=== PATIENT | female | born 1965 | race Caucasian/White ===

== ENCOUNTER → 2016-10-02 | Outpatient (REF) | payer OTHER ==
[~2016-10-02] MED LIST: ACET65TA OR; BISOPROLOL PO; CALCIUM/VITAMIN D PO; HYDR25TA6 PO; LEVA500T OR; MULTIVIT PO; NAPROXEN SODIUM PO; PERC5TAB8 OR; POTA20TA PO
[2016-10-02 13:33] LABS: ALBUMIN 3.8 GM/DL (3.2-5.2); ALBUMIN/GLOBULIN RATIO 1.36 (1.00-1.93); ALKALINE PHOSPHATASE 88 U/L (45-117); ALT/SGPT 25 U/L (12-78); ANION GAP 7 MEQ/L (8-16); AST/SGOT 14 U/L (15-37); BILIRUBIN,TOTAL 0.6 MG/DL (0.2-1.0); BLOOD UREA NITROGEN 18 MG/DL (7-18); CALCIUM LEVEL 8.7 MG/DL (8.5-10.1); CARBON DIOXIDE LEVEL 27 MEQ/L (21-32); CHLORIDE LEVEL 106 MEQ/L (98-107); CHOLESTEROL LEVEL 186 MG/DL (<200); CREATININE FOR GFR 0.71 MG/DL (0.55-1.02); GLOMERULAR FILTRATION RATE > 60.0 (>51); GLUCOSE, FASTING 94 MG/DL (70-105); POTASSIUM SERUM 3.5 MEQ/L (3.5-5.1); SODIUM LEVEL 140 MEQ/L (136-145); TOTAL PROTEIN 6.6 GM/DL (6.4-8.2); TRIGLYCERIDES LEVEL 67 MG/DL (<150)
== END ==
LOC: M SFHCCLAY 09:01
PROVIDERS: ATTEND Family Medicine
DX: I10 Essential (primary) hypertension (principal); E78.2 Mixed hyperlipidemia

== ENCOUNTER → 2017-03-21 | Outpatient (REF) | payer OTHER ==
[2017-03-21 12:15] LABS: ALBUMIN/GLOBULIN RATIO 1.33 (1.00-1.93); ALKALINE PHOSPHATASE 79 U/L (45-117); ALT/SGPT 20 U/L (12-78); ANION GAP 10 MEQ/L (8-16); AST/SGOT 12 U/L (7-37); BILIRUBIN,TOTAL 0.5 MG/DL (0.2-1.0); BLOOD UREA NITROGEN 19 MG/DL (7-18); CALCIUM LEVEL 9.1 MG/DL (8.5-10.1); CARBON DIOXIDE LEVEL 27 MEQ/L (21-32); CHLORIDE LEVEL 106 MEQ/L (98-107); CHOLESTEROL LEVEL 198 MG/DL (<200); GLOMERULAR FILTRATION RATE > 60.0 (>51); GLUCOSE, FASTING 92 MG/DL (70-105); POTASSIUM SERUM 3.6 MEQ/L (3.5-5.1); SODIUM LEVEL 143 MEQ/L (136-145); TRIGLYCERIDES LEVEL 57 MG/DL (<150)
== END ==
LOC: M SFHCCLAY 07:28
PROVIDERS: ATTEND Family Medicine
DX: I10 Essential (primary) hypertension (principal); E78.2 Mixed hyperlipidemia

== ENCOUNTER → 2017-06-23 | Outpatient (REF) | payer OTHER ==
[2017-06-23 11:19] LABS: BASO # 0.1 10^3/uL (0.0-0.2); BASO % 1.2 % (0.0-1.0); EOS # 0.3 10^3/uL (0.0-0.50); EOS % 4.3 % (0.0-3.0); HEMATOCRIT 41.5 % (36.0-47.0); HEMOGLOBIN 13.7 g/dl (12.0-16.0); IMMATURE GRANULOCYTE % 0.2 % (0-3.0); LYMPH # 2.1 10^3/uL (1.5-4.5); LYMPH % 31.3 % (24.0-44.0); MEAN CORPUSCULAR HEMOGLOBIN 29.7 pg (27.0-33.0); MEAN CORPUSCULAR VOLUME 89.8 fl (80.0-96.0); MONO # 0.6 10^3/uL (0.0-0.8); MONO % 9.4 % (0.0-5.0); NEUTROPHILS # 3.5 10^3/uL (1.8-7.7); NEUTROPHILS % 53.6 % (36.0-66.0); PLATELET COUNT, AUTOMATED 292 10^3/uL (150-450); RED BLOOD COUNT 4.62 10^6/uL (4.00-5.40); RED CELL DISTRIBUTION WIDTH 12.8 % (11.5-14.5); WHITE BLOOD COUNT 6.6 10^3/uL (4.0-10.0)
[2017-06-23 11:33] LABS: ANION GAP 8 MEQ/L (8-16); BLOOD UREA NITROGEN 28 MG/DL (7-18); CARBON DIOXIDE LEVEL 27 MEQ/L (21-32); CHLORIDE LEVEL 106 MEQ/L (98-107); CREATININE FOR GFR 0.78 MG/DL (0.55-1.30); GLOMERULAR FILTRATION RATE > 60.0 (>51); GLUCOSE, FASTING 96 MG/DL (70-100); POTASSIUM SERUM 3.8 MEQ/L (3.5-5.1); SODIUM LEVEL 141 MEQ/L (136-145)
== END ==
LOC: M SFHCCLAY 07:03
DX: Z01.818 Encounter for other preprocedural examination (principal)

== ENCOUNTER → 2017-09-09 | Outpatient (CLI) | payer OTHER | LOC: M ONCR 08:51 | DX: D05.11 Intraductal carcinoma in situ of right breast (principal) | CPT/HCPCS: G0463 ==

== ENCOUNTER → 2017-09-11 | Outpatient (RCR) | payer OTHER | LOC: M ONCR 10:05 | DX: D05.11 Intraductal carcinoma in situ of right breast (principal) | CPT/HCPCS: 77334 ==

== ENCOUNTER 2017-09-12 10:02 | Outpatient (RCR) | payer OTHER | END 2017-10-11 | LOC: M ONCR 10:02 | DX: D05.11 Intraductal carcinoma in situ of right breast (principal) | CPT/HCPCS: 77300 ==

== ENCOUNTER → 2017-10-17 | Outpatient (REF) | payer OTHER ==
[2017-10-17 12:55] LABS: ALBUMIN 3.7 GM/DL (3.2-5.2); ALBUMIN/GLOBULIN RATIO 1.19 (1.00-1.93); ALKALINE PHOSPHATASE 84 U/L (45-117); ALT/SGPT 22 U/L (12-78); ANION GAP 8 MEQ/L (8-16); AST/SGOT 16 U/L (7-37); BILIRUBIN,TOTAL 0.5 MG/DL (0.2-1.0); BLOOD UREA NITROGEN 17 MG/DL (7-18); CALCIUM LEVEL 8.9 MG/DL (8.5-10.1); CARBON DIOXIDE LEVEL 27 MEQ/L (21-32); CHLORIDE LEVEL 108 MEQ/L (98-107); CHOLESTEROL LEVEL 213 MG/DL (<200); CREATININE FOR GFR 0.75 MG/DL (0.55-1.30); GLOMERULAR FILTRATION RATE > 60.0 (>51); GLUCOSE, FASTING 86 MG/DL (70-100); HDL CHOLESTEROL 71 MG/DL (>40); LDL CHOLESTEROL 123.2 MG/DL (<100); NON-HDL-C 142 MG/DL; POTASSIUM SERUM 3.9 MEQ/L (3.5-5.1); SODIUM LEVEL 143 MEQ/L (136-145); TOTAL PROTEIN 6.8 GM/DL (6.4-8.2); TRIGLYCERIDES LEVEL 94 MG/DL (<150)
== END ==
LOC: M SFHCCLAY 08:18
DX: I10 Essential (primary) hypertension (principal); E78.2 Mixed hyperlipidemia

== ENCOUNTER → 2017-10-29 | Outpatient (CLI) | payer OTHER | LOC: M ONCR 13:23 | DX: D05.11 Intraductal carcinoma in situ of right breast (principal) ==

== ENCOUNTER → 2017-12-30 | Outpatient (CLI) | payer OTHER | LOC: M WHC 15:45 | DX: D05.11 Intraductal carcinoma in situ of right breast (principal) | CPT/HCPCS: 77080 ==

== ENCOUNTER → 2018-02-16 | Outpatient (REF) | payer OTHER ==
[2018-02-16 13:58] LABS: CHOLESTEROL LEVEL 218 MG/DL (<200); CHOLESTEROL RISK RATIO 3.353 (<5); HDL CHOLESTEROL 65 MG/DL (>40); LDL CHOLESTEROL 128 MG/DL (<100); NON-HDL-C 153 MG/DL; TRIGLYCERIDES LEVEL 126 MG/DL (<150)
== END ==
LOC: M SFHCCLAY 07:18
DX: E78.2 Mixed hyperlipidemia (principal)

== ENCOUNTER → 2018-04-29 | Outpatient (CLI) | payer OTHER ==
--- NOTE | 2018-04-30 00:53 | REP ---
Clinical: Bursitis. Technique: Internal rotation, external rotation, and Y view of the right shoulder. Findings: Cortical irregularity and subtle spurring at the acromioclavicular joint is appreciated. The glenohumeral joint appears intact. The subacromial space is normal. No periarticular calcifications or loose bodies identified. Surrounding soft tissues are normal. Impression: Mild degenerative changes at the acromioclavicular joint.
--- NOTE | 2018-04-30 00:57 | REP ---
Clinical: Acute chest pain . Comparison: None . Technique: PA and lateral. Findings: The mediastinum and cardiac silhouette are normal. The lung albright are clear and without acute consolidation, effusion, or pneumothorax. The skeletal structures are intact and normal. Impression: 1. No acute cardiopulmonary process.
== END ==
LOC: M CLY 14:55
PROVIDERS: ATTEND Family Medicine
DX: M25.711 Osteophyte, right shoulder (principal); M75.51 Bursitis of right shoulder; R07.9 Chest pain, unspecified

== ENCOUNTER → 2018-05-14 | Outpatient (REF) | payer OTHER ==
[2018-05-15 12:34] LABS: ALBUMIN 4.2 GM/DL (3.2-5.2); ALT/SGPT 24 U/L (12-78); BILIRUBIN,TOTAL 0.3 MG/DL (0.2-1.0); BLOOD UREA NITROGEN 14 MG/DL (7-18); C REACTIVE PROTEIN QUANTITATIV < 0.30 MG/DL (0.00-0.30); CALCIUM LEVEL 9.4 MG/DL (8.5-10.1); CARBON DIOXIDE LEVEL 28 MEQ/L (21-32); CHLORIDE LEVEL 105 MEQ/L (98-107); CREATININE FOR GFR 0.74 MG/DL (0.55-1.30); GLOMERULAR FILTRATION RATE > 60.0 (>51); GLUCOSE, FASTING 85 MG/DL (70-100); POTASSIUM SERUM 3.7 MEQ/L (3.5-5.1); SODIUM LEVEL 141 MEQ/L (136-145); TOTAL PROTEIN 6.8 GM/DL (6.4-8.2)
[2018-05-19 13:04] LABS: ALBUMIN 4.42 GM/DL (3.29-5.55); ALPHA-1-GLOBULIN % 4.1 % (2.9-4.9); ALPHA-1-GLOBULINS 0.28 GM/DL (0.17-0.41); ALPHA-2-GLOBULINS % 10.3 % (7.1-11.8); BETA-1-GLOBULINS 0.39 GM/DL (0.28-0.60); BETA-1-GLOBULINS % 5.8 % (4.7-7.2); BETA-2-GLOBULINS 0.27 GM/DL (0.19-0.55); BETA-2-GLOBULINS % 3.9 % (3.2-6.5); GAMMA GLOBULIN % 10.9 % (11.1-18.8); GAMMA GLOBULINS 0.74 GM/DL (0.65-1.58)
== END ==
LOC: M SFHCCLAY 14:39
PROVIDERS: ATTEND Family Medicine
DX: M25.50 Pain in unspecified joint (principal)

== ENCOUNTER → 2018-06-04 | Outpatient (REF) | payer OTHER ==
[2018-06-08 00:06] LABS: ANA (HEP2) Negative (.); CYCLIC CITRULLINATED PEPTIDE 13 units (0-19); Lyme Disease IgG/IgM Antibodie <0.91 ISR (0.00-0.90); Lyme Disease IgM Ab Quantitati <0.80 index (0.00-0.79)
== END ==
LOC: M SFHCCLAY 17:42
PROVIDERS: ATTEND Family Medicine
DX: M25.50 Pain in unspecified joint (principal)

== ENCOUNTER → 2018-06-24 | Outpatient (CLI) | payer OTHER ==
--- NOTE | 2018-06-29 10:29 | RADONC ---
RADIATION ONCOLOGY FOLLOWUP NOTE DATE OF SERVICE: 06/24/2018 CHART NUMBER: [id number]. DIAGNOSIS: Right breast cancer. STAGE: 0, [id number]. ECOG PERFORMANCE STATUS: Zero. FOLLOWUP NOTE: Ms. 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 The patient presents today reporting that she is doing quite well with no complaints at this time related to her radiation therapy or disease. She has no breast or bone pain. REVIEW OF SYSTEMS: The patient's review of systems is noncontributory. She denies nausea, vomiting, fevers, chills, night sweats, diplopia, headaches, anxiety or depression, anorexia, weight loss, visual disturbances, chest pain, urinary or bowel difficulties, bone pain, or neurological problems. PHYSICAL EXAMINATION: The patient is a well-developed, well-nourished female in no acute distress. HEENT examination is normocephalic, atraumatic. Extraocular movements are intact. There is no palpable cervical, supraclavicular, infraclavicular, axillary, or inguinal lymphadenopathy present. Lungs are clear to auscultation and percussion. Heart has a regular rate and rhythm. Abdomen is benign with no hepatosplenomegaly, masses, or tenderness. Breast examination reveals no masses or discharge bilaterally. Skeletal examination reveals no tenderness to pressure or percussion of the bony skeleton. Extremities reveal no clubbing, cyanosis, or edema. Neurologic examination is grossly intact, as is the remainder of the physical examination. ASSESSMENT The patient is clinically VU at this time. She is being followed and managed closely by her other physicians, Dr. Stephanie Pandya and Dr. Ara Alex. In light of this, I am discharging her from my followup except on a p.r.n. basis. cc: MD Ara Garcia MD Jack Rush, MD
== END ==
LOC: M ONCR 12:52
PROVIDERS: ATTEND Radiology Radiation Oncology
DX: Z85.3 Personal history of malignant neoplasm of breast (principal)

== ENCOUNTER → 2018-06-25 | Outpatient (CLI) | payer OTHER ==
--- NOTE | 2018-06-25 18:27 | REP ---
Clinical: History of breast cancer with abnormal x-ray. Technique: Real time pepe scale ultrasound examination using curved array transducer. Findings: Liver demonstrates 7 mm cyst adjacent to the ligamentum teres as well as a 1.6 x 1.3 x 1.1 cm hyperechoic lesion in the right lobe. Spleen is normal in appearance and measures 9.4 x 3.5 x 8.7 cm. Pancreas is unremarkable. The gallbladder is normal and without gallstones, wall thickening, or pericholecystic fluid. No biliary ductal dilatation is appreciated and the common bile duct measures 4.7 mm diameter. Bilateral kidneys are normal in reniform shape without hydronephrosis. Right kidney measures 10.1 x 5.4 x 5.0 cm. Left kidney measures 10.4 x 5.3 x 6.0 cm. Abdominal aorta normal. No ascites. Impression: 1. Subcentimeter hepatic cyst adjacent to the ligamentum teres stable when compared to CT dated 2010. 2. 1.6 cm hyperechoic lesion within the right lobe of the liver likely represents hemangioma although further significant pathology cannot be excluded given the patient's history of breast cancer. Electronically Signed by Alexander Urban MD 06/25/2018 06:18 P
== END ==
LOC: M RAD 06:21
PROVIDERS: ATTEND Family Medicine
DX: R93.5 Abnormal findings on diagnostic imaging of other abdominal regions, including retroperitoneum (principal); K76.89 Other specified diseases of liver; Z85.3 Personal history of malignant neoplasm of breast

== ENCOUNTER → 2018-07-07 | Outpatient (CLI) | payer OTHER ==
[~2018-07-07] MED LIST changes: +GASTROGRAFIN SOLUTION 30ML (Q9963) As Ordered ONE; +ISOVUE-370 76% 125ML VIAL (Q9967 PER ML) As Ordered ONE
--- NOTE | 2018-07-07 16:09 | REP ---
Clinical: Follow-up liver lesion. Comparison: Ultrasound dated 06/25/2018. Technique: Axial precontrast, contrast enhanced, and delayed images of the abdomen using 100 ml Isovue 370 intravenous contrast material with coronal and sagittal re-formations. Findings: The 1.6 cm hyperechoic lesion identified in the right lobe on ultrasound has CT characteristics consistent with benign hemangioma. Few scattered subcentimeter hypodensities are also appreciated and consistent with benign hepatic cysts. No further hepatic lesions are identified. Spleen, pancreas, gallbladder, bilateral adrenal glands and kidneys are normal. Visualized enteric system is without obstruction or acute inflammatory process. Normal cecum, terminal ileum and evidence of prior appendectomy noted. No ascites. No obvious adenopathy. No abdominal mass lesion. Abdominal aorta without aneurysm or dissection. Surrounding musculoskeletal structures are intact. Lung bases are clear. Impression: 1. Nonspecific hepatic lesion identified on recent ultrasound is most compatible with benign hemangioma. A small sub centimeter hypodensities are compatible with benign hepatic cysts. 2. No further acute abdominal pathology appreciated. Electronically Signed by Alexander Urban MD 07/07/2018 04:01 P
== END ==
LOC: M RAD 13:50
PROVIDERS: ATTEND Family Medicine
DX: K76.89 Other specified diseases of liver (principal)
CPT/HCPCS: 74170; Q9963; Q9967

== ENCOUNTER → 2018-09-17 | Outpatient (CLI) | payer OTHER ==
[~2018-09-17] MED LIST changes: -GASTROGRAFIN SOLUTION 30ML (Q9963) As Ordered ONE; -ISOVUE-370 76% 125ML VIAL (Q9967 PER ML) As Ordered ONE
[2018-09-17 14:45] LABS: BLOOD UREA NITROGEN 15 MG/DL (7-18); CALCIUM LEVEL 8.8 MG/DL (8.5-10.1); CARBON DIOXIDE LEVEL 28 MEQ/L (21-32); CHLORIDE LEVEL 107 MEQ/L (98-107); CREATININE FOR GFR 0.87 MG/DL (0.55-1.30); GLOMERULAR FILTRATION RATE > 60.0 (>51); GLUCOSE, FASTING 131 MG/DL (70-100); POTASSIUM SERUM 3.3 MEQ/L (3.5-5.1); SODIUM LEVEL 143 MEQ/L (136-145)
== END ==
LOC: M LAB 13:19
PROVIDERS: ATTEND Registered Nurse
DX: D05.11 Intraductal carcinoma in situ of right breast (principal)

== ENCOUNTER → 2018-10-27 | Outpatient (REF) | payer OTHER ==
[2018-10-29 00:08] LABS: ANA (HEP2) Negative (.); CYCLIC CITRULLINATED PEPTIDE 10 units (0-19); Lyme Disease IgG/IgM Antibodie <0.91 ISR (0.00-0.90); Lyme Disease IgM Ab Quantitati <0.80 index (0.00-0.79)
== END ==
LOC: M LABDRAWC 11:38
PROVIDERS: ATTEND Family Medicine
DX: M25.50 Pain in unspecified joint (principal)

== ENCOUNTER → 2018-10-29 | Outpatient (REF) | payer OTHER ==
[2018-10-29 16:58] LABS: BLOOD UREA NITROGEN 18 MG/DL (7-18); CALCIUM LEVEL 9.3 MG/DL (8.5-10.1); CARBON DIOXIDE LEVEL 29 MEQ/L (21-32); CHLORIDE LEVEL 110 MEQ/L (98-107); GLOMERULAR FILTRATION RATE > 60.0 (>51); GLUCOSE, FASTING 88 MG/DL (70-100); SODIUM LEVEL 143 MEQ/L (136-145)
== END ==
LOC: M SFHCCLAY 10:43
PROVIDERS: ATTEND Family Medicine
DX: Z01.818 Encounter for other preprocedural examination (principal); I10 Essential (primary) hypertension

== ENCOUNTER → 2019-01-15 | Outpatient (REF) | payer OTHER ==
[2019-01-15 13:14] LABS: BLOOD UREA NITROGEN 20 MG/DL (7-18); CALCIUM LEVEL 9.2 MG/DL (8.5-10.1); CARBON DIOXIDE LEVEL 30 MEQ/L (21-32); CHLORIDE LEVEL 105 MEQ/L (98-107); CREATININE FOR GFR 0.74 MG/DL (0.55-1.30); GLOMERULAR FILTRATION RATE > 60.0 (>51); GLUCOSE, FASTING 83 MG/DL (70-100); MAGNESIUM LEVEL 2.1 MG/DL (1.8-2.4); POTASSIUM SERUM 4.1 MEQ/L (3.5-5.1); SODIUM LEVEL 140 MEQ/L (136-145)
== END ==
LOC: M SFHCCLAY 09:28
PROVIDERS: ATTEND Family Medicine
DX: I10 Essential (primary) hypertension (principal); G25.0 Essential tremor

== ENCOUNTER → 2019-03-19 | Outpatient (CLI) | payer OTHER ==
[2019-03-19 14:34] LABS: BLOOD UREA NITROGEN 18 MG/DL (7-18); CREATININE FOR GFR 0.83 MG/DL (0.55-1.30); GLOMERULAR FILTRATION RATE > 60.0 (>51)
== END ==
LOC: M LAB 12:29
PROVIDERS: ATTEND Psychiatry & Neurology Neurology
DX: I10 Essential (primary) hypertension (principal)

== ENCOUNTER → 2019-05-06 | Outpatient (REF) | payer OTHER ==
[~2019-05-06] MED LIST changes: +BISO5TAB14 PO; +CALC500C16 PO; +K-TA10TA2 PO; +LISI20TA19 PO
[2019-05-06 12:32] LABS: BLOOD UREA NITROGEN 16 MG/DL (7-18); CALCIUM LEVEL 9.5 MG/DL (8.5-10.1); CARBON DIOXIDE LEVEL 28 MEQ/L (21-32); CHLORIDE LEVEL 108 MEQ/L (98-107); CREATININE FOR GFR 0.88 MG/DL (0.55-1.30); GLOMERULAR FILTRATION RATE > 60.0 (>51); GLUCOSE, FASTING 94 MG/DL (70-100); POTASSIUM SERUM 4.1 MEQ/L (3.5-5.1); SODIUM LEVEL 143 MEQ/L (136-145)
[2019-05-06 12:40] LABS: HEMATOCRIT 46.2 % (36.0-47.0); HEMOGLOBIN 14.5 g/dl (12.0-15.5); MEAN CORPUSCULAR HEMOGLOBIN 29.2 pg (27.0-33.0); MEAN CORPUSCULAR HGB CONC 31.4 g/dl (32.0-36.5); PLATELET COUNT, AUTOMATED 283 10^3/uL (150-450); RED BLOOD COUNT 4.97 10^6/uL (4.00-5.40); WHITE BLOOD COUNT 5.2 10^3/uL (4.0-10.0)
== END ==
LOC: M SFHCCLAY 07:19
PROVIDERS: ATTEND Family Medicine
DX: Z01.818 Encounter for other preprocedural examination (principal); I10 Essential (primary) hypertension; M48.02 Spinal stenosis, cervical region

== ENCOUNTER 2019-05-11 05:36 | Inpatient (IN) | payer OTHER ==
[~2019-05-11] VITALS: Ht 160 cm; Wt 88.5 kg
[2019-05-11] VITALS (8 sets, daily range): BP systolic 110–126; BP diastolic 51–73
[2019-05-11] MEDS ORDERED: GABAPENTIN 300 MG CAP PO ONE (06:00)
[2019-05-11] MEDS ORDERED: ceFAZolin SOD 2 GM in IV 1 EA IV ONE ×2 (06:00→14:00)
[2019-05-11] MEDS ORDERED: LR 1,000 ML IV SCH ×3 (06:00→12:45)
[2019-05-11] MEDS ORDERED: CelecoXIB (CeleBREX) 100 MG CAP PO ONE (06:00)
[2019-05-11] MEDS ORDERED: PERCOCET 5MG/325MG TAB PO ONE (06:00)
[2019-05-11] MEDS ORDERED: BUPIVACAINE/EPIN 0.25% 30 ML VIAL As Ordered ONE (06:20)
[2019-05-11] MEDS ORDERED: LIDOCAINE W/EPINEPHRINE 1% 20ML VIAL As Ordered ONE (06:20)
[2019-05-11] MEDS ORDERED: THROMBIN SOLN 20,000 UNITS KIT As Ordered ONE (06:21)
[2019-05-11] MEDS ORDERED: BACITRACIN PWD 50,000 UNITS VIAL As Ordered ONE (06:21)
[2019-05-11] MEDS ORDERED: MIDAZOLAM INJ 2 MG/2 ML VIAL (J2250) As Ordered ONE (06:45)
[2019-05-11] MEDS ORDERED: fentaNYL 250 MCG/5 ML INJECTION (J3010) As Ordered ONE (06:45)
[2019-05-11] MEDS ORDERED: dexameTHASONE 4 MG/ML 1ML VIAL (J1100) As Ordered ONE (06:46)
[2019-05-11] MEDS ORDERED: ROCURONIUM BROMIDE 50 MG/5 ML VIAL As Ordered ONE (06:46)
[2019-05-11] MEDS ORDERED: ACETAMINOPHEN 1000MG 100ML IV BTL (OFIRMEV) (J0131 PER 10MG) As Ordered ONE (06:46)
[2019-05-11] MEDS ORDERED: SUGAMMADEX SODIUM 500 MG/5 ML VIAL (BRIDION) As Ordered ONE (06:46)
[2019-05-11] MEDS ORDERED: propofoL 200 MG/20 ML VIAL As Ordered ONE (06:46)
[2019-05-11] MEDS ORDERED: ONDANSETRON 4MG/2ML VIAL (J2405) As Ordered ONE (06:46)
[2019-05-11] MEDS ORDERED: LIDOCAINE 2% INJ 100 MG/5 ML SDV (FOR ANES.) As Ordered ONE (06:47)
[2019-05-11] MEDS ORDERED: SCOPOLAMINE 1MG TRANSDERMAL PATCH TOP ONE (07:30)
--- NOTE | 2019-05-11 07:30 | HPE ---
DATE OF ADMISSION: 05/11/2019 HISTORY OF PRESENT ILLNESS: The patient is having continuing neck discomfort with the right arm extremity burning discomfort terminating at the ulnar side of her hand. She had MRI imaging consistent with stenosis. MRI was reflective of degenerative change C3-C7, but most significantly at C5-C6 spinal stenosis, AP diameter of the cord measuring 7.3 mm, and at C6-7 the narrowest AP diameter is about 5.2 mm. No cord signal change was appreciated. Plain films were also reflective of diffuse degenerative changes C3-C7, including anterior osteophyte formation which may be most developed at C5-6 and C6-7. ALLERGIES: PENICILLIN has caused her rash in the past. MEDICATIONS: List includes lisinopril/hydrochlorothiazide 20/12.5 mg, potassium chloride ER 10 mEq, bisoprolol fumarate 5 mg, etodolac 400 mg, calcium 500 mg. MEDICAL PROBLEM LIST: Includes cervicalgia, cervical stenosis with right upper extremity radiculopathy, pure hypercholesteremia, hypertension. PAST SURGICAL HISTORY: Appendectomy, lumpectomy of breast, tonsillectomy, right rotator cuff repair. FAMILY HISTORY: Arthritis, diabetes, hypercholesteremia, hypertension and also thyroid disease. PERSONAL HISTORY: She denies smoking. She occasionally intakes alcohol. Denies illicit drugs. REVIEW OF SYSTEMS: She denies chest pain, shortness of breath, dyspnea on exertion, fever, chills, malaise, upper respiratory or urinary tract symptoms. She reports clearance per primary care physician, Dr. Young, although I am still awaiting clearance documentation. LABS: Labs were completed via [facility] on 05/06/2019. Findings show chloride 108, anion gap 7, MCHC 31.4, otherwise unremarkable. PHYSICAL EXAMINATION: Blood pressure (BP) 139/80. Pulse 84. Temperature 98.5. Height 5 feet 3 and 1/2 inches. Weight 195.8 pounds. Body mass index (BMI) 33.5. Respirations 16. This is a pleasant, well-developed, well-nourished, obese female in no acute distress, alert and oriented times three. Mood and affect are appropriate. She is ambulating without overt antalgia, assistance or favoring. Normocephalic. Neck: Supple. Negative jugular venous distention (JVD) or bruits. Chest rises symmetrically. Regular rate and rhythm. Lungs: Clear to auscultation. Bowel sounds times four, soft, nontender. IMPRESSION: Continuing symptomatic cervical stenosis producing right arm radiculopathy. The patient has consented for anterior cervical decompression fusion per Dr. Tres Espino. Medical optimization per Dr. Otoniel Young. We are awaiting his clearance note, although the patient states she has been cleared. Sequential compression device (SCD) and thromboembolic deterrent stockings (TEDS) in operating room (OR). [place] collar to be brought to surgery. On-call to OR, 2 grams IV Kefzol in OR. MTDD
[2019-05-11] MEDS ORDERED: fentaNYL 100 MCG/2 ML INJECTION (J3010) IV PRN (12:45)
[2019-05-11] MEDS ORDERED: ACETAMINOPHEN TAB 650MG DOSE (2X325MG) PO PRN (12:45)
[2019-05-11] MEDS ORDERED: HYDROMORPHONE HCL 0.5 MG/ 0.5 ML SYRINGE (J1170 PER 1) IV PRN ×2 (12:45)
[2019-05-11] MEDS ORDERED: PERCOCET 5MG/325MG TAB PO PRN (12:45)
[2019-05-11] MEDS ORDERED: ONDANSETRON 4MG/2ML VIAL (J2405) IV PRN (12:45)
[2019-05-11] MEDS ORDERED: oxyCODONE 5MG TAB As Ordered ONE (12:58)
[2019-05-11] MEDS ORDERED: oxyCODONE 5MG TAB PO ONE (13:15)
[2019-05-11] MEDS: D5W/LR 1,000 ML IV SCH (14:04)
[2019-05-11] MEDS: ONDANSETRON 4MG/2ML VIAL (J2405) IV PRN ×2 (14:58→18:50)
[2019-05-11] MEDS: PERCOCET 5MG/325MG TAB PO PRN (18:25)
[2019-05-12 02:00] VITALS: BP 135/80
[2019-05-12] MEDS: ONDANSETRON 4MG/2ML VIAL (J2405) IV PRN ×2 (02:07→09:30)
[2019-05-12] MEDS: D5W/LR 1,000 ML IV SCH (02:08)
[2019-05-12] MEDS: PERCOCET 5MG/325MG TAB PO PRN ×2 (02:08→09:33)
--- NOTE | 2019-05-12 03:06 | REP ---
Clinical: Cervical fixation. Technique: Multiple intraoperative cross-table lateral views of the cervical spine. Findings: Final image demonstrates anterior cervical fixation spanning C5 - C7. Alignment appears relatively normal. Multilevel degenerative changes are also appreciated. Impression: Status post anterior cervical fixation. Electronically Signed by Alexander Urban MD 05/12/2019 02:57 A
[2019-05-12] MEDS ORDERED: OXYC-517 PO (05:52)
[2019-05-12 06:00] VITALS: BP 136/79
[2019-05-12] MEDS ORDERED: METAMUCIL (PSYLLIUM) PACKET PO SCH (09:00)
[2019-05-12] MEDS ORDERED: lisinopriL 20 MG TAB PO SCH (09:00)
[2019-05-12] MEDS ORDERED: bisoproloL fumarate 5 MG TAB PO SCH (09:00)
[2019-05-12] MEDS ORDERED: hydroCHLOROthiazide 12.5 MG CAPSULE PO SCH (09:00)
[2019-05-12] MEDS ORDERED: POTASSIUM CHLORIDE 10 MEQ SR TABLET PO SCH (09:00)
[2019-05-12 09:31] VITALS: BP 140/81
[2019-05-12 10:00] VITALS: BP 141/82
--- NOTE | 2019-05-12 13:44 | RO ---
DATE OF PROCEDURE: 05/11/2019 PREOPERATIVE DIAGNOSIS: Cervical spinal stenosis producing right upper extremity neurogenic claudication and radicular pain. POSTOPERATIVE DIAGNOSIS: Cervical spinal stenosis producing right upper extremity neurogenic claudication and radicular pain. PROCEDURE PERFORMED: Partial corpectomy of the C6 vertebral body for decompression of the thecal sac and removal of the posterior longitudinal ligament, 50% of the C6 corpus removed in addition to a small portions of that the C7 corpus as well as osteophytes. Additional level partial corpectomy C5, 50% at the C5 corpus removed, as well as, the uncinate processes of the C6 corpus, as well as, osteophytes and the posterior longitudinal ligament. Arthrodesis C5-6 and arthrodesis C6-7. Structural graft utilized at C5-6 and C6-7. Anterior cervical instrumentation plate instrumentation C5, C6, C7 applied. SURGEON: Dr. Tres Espino FINANCE AND ADMINISTRATION MANAGER: Pan Paulino, physician podiatrist assistant ANESTHESIA: General. ESTIMATED BLOOD LOSS: Less than 50 mL, replaced with crystalloid. COMPLICATIONS: None. COMPONENTS USED: Include a DePuy [place] 30 mm plate, 15 mm screws superiorly and inferiorly, 14 mm screws at the C6 level. VG2 structural allograft for spine surgery, size 5x7 used at C5-6 and size 5x7 used at C6-7. INDICATIONS: Severe spinal stenosis as evidenced on MRI. Multilevel degenerative changes with the worst spinal stenosis appearing at C6-7 with spinal cord deformity, but as well as some at C5-6. The patient has elected for operative intervention. CONSENT: Consent reviewed in detail including a yin discussion of pathology involved, procedure proposed, alternatives including doing nothing, and risks including, but not limited to pain, failure, infection, bleeding, blood loss, incomplete relief of symptoms, need for additional surgery, paralysis, swallowing trouble, hoarseness, and other issues. The indications for corpectomy include complete collapse of the C6-7 disk space as well as C5-6 disk space necessitating additional bony resection over what is typical. OPERATIVE COURSE: Identified in the holding area, site and side verified, brought to the operating room. General endotracheal anesthesia was administered and she was positioned in the usual fashion. Next, the shoulders were taped at the side, head halter traction 7 pounds was applied. She was draped for exposure for a right-sided anterior cervical approach. Next, incision outlined with a marking pen. I utilized 3.5 loupe magnification. Incision was infiltrated with 1% lidocaine with epinephrine. I obtained a cross-table lateral x-ray to verify our location because of the patient's relatively short montiel neck and the proximity of the clavicle to the planned incision. We verified our appropriate trajectory. We made the incision with a 10 blade knife and developed down through skin and subcuticular tissues. I did appreciate significant soft tissue fibrosis and this was thought to likely be due to exposure to radiation during breast cancer treatment. This fibrosis extended throughout the case and did significantly add to the difficulty of the case in the time required to complete the procedure. Next, platysma was elevated and divided with the bipolar cautery as well as tenotomy scissors. The omohyoid was identified. There were large epidural branches of the external jugular and I was required to ligate and divide these in the course the exposure. Sternocleidomastoid was landmark bilaterally. Next, the dissection continued medial to the carotid sheath which was protected. Again, significant fibrosis of the soft tissue made this slow going for mostly blunt dissection. We continued to the osteophyte complex at C5-6 and C6-7. I cleared the prevertebral fascia from the C5-6 osteophyte, which was quite large. I placed the bayonet spinal needle. Next, once this was accomplished, we obtained a cross-table lateral x-ray for localization. Next, once we verified our level, I then elevated the longus colli bilaterally and exposed the osteophyte complexes at C5-6 and C6-7. Leksells and Aguilera-Petersens were utilized to remove the anterior disk osteophyte complex. Next, distraction pins were placed at C6-7 and then we placed the Shadow-Line retractor. Mr. Montanez also utilized S retractors to help with the exposure. I utilized an 11 blade to open additional portions of annulus at 6-7 and I distracted across C6-7. The C6-7 interspace was appreciated to be significantly collapsed. Next, I utilized #2 and #3 Kerrisons to remove inferior corpus of C6 and additional osteophytes. I utilized curettes to remove cartilaginous endplate I utilized the oval bur to remove inferior corpus 6 so that I could continue the dissection down to the posterior longitudinal ligament. The uncinate processes were also debrided. The posterior longitudinal ligament was elevated with curved curettes and removed using #1 and #2 Kerrisons exposing the thecal sac. Irrigation was accomplished. Once I verified the thecal sac had been decompressed significantly, I then rasped using a size 4 x 6 and 5 x 7 rasp and 5 x7 sound. We selected a 5.7 graft. We utilized bur millings which were pressed into the graft and the graft was implanted at C6-7. Next, it was tamped into place. Once this was accomplished, inferior traction pin removed and oval bur was utilized to further contour osteophyte. Plug of wax was utilized to plug the hole. Next, we moved the retractor superiorly and placed a distraction pin across C5-6. Next, again osteophyte was removed using the Aguilera-Petersens. I then removed disk material using pituitaries. We then curetted and utilized #2 and #3 Kerrisons to remove inferior corpus 5 at the anterior aspect. I utilized curved curettes to remove cartilaginous endplate. I used the oval bur to remove additional inferior corpus of 5 down to the PLL. I utilized the oval bur to further flatten the uncinate processes of C6. I utilized curved curettes to elevate the posterior longitudinal ligament and removed it with #1 and #2 Kerrisons and exposed the thecal sac which was appreciated to be decompressed. Irrigation was accomplished. Rasps were utilized through a size 5 x 7 and 5 x 7 sound was utilized. I then implanted at 5 x 7 graft with bur milling pressed into the graft for bone graft. Next, it was tamped into place. Next, distraction pins were removed. The holes plugged with wax. Mr. Montanez utilized S retractors to help with exposure. I utilized the oval bur to further contour the anterior vertebral bodies to receive the plate. We selected a 30 mm plate, which was implanted from C5 through 7, 15 mm screws inferiorly at 7 and at 5 superiorly, 14 mm screws at 6. The locking device was engaged. Irrigation was accomplished. We inspected for bleeding. No active bleeding. The wound retractors were removed. All pins were removed. The platysma was closed with interrupted stitch, deep dermis with interrupted stitch and Dermabond on skin. Collar was applied. The patient extubated and moved to recovery room in good condition. For further details, please refer to the medical record.
--- NOTE | 2019-05-13 01:03 | ECGEPIP ---
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
--- NOTE | 2019-05-18 14:16 | DSES ---
DATE OF ADMISSION: 05/11/2019 DATE OF DISCHARGE: 05/12/2019 DISCHARGE DIAGNOSIS: Cervical spinal stenosis of the right upper extremity radiculopathy status post anterior cervical decompression and fusion of C5-6 and C6-7. HISTORY: This is a 53-year-old female with progressively worsening cervical spinal stenosis with right upper extremity radiculopathy. She had failed to improve with conservative treatment. She elected for surgery for her continued symptoms. PROCEDURE PERFORMED: Anterior cervical decompression and fusion of C5-6 and C6-7. HOSPITAL COURSE: The patient was admitted on the day of surgery and underwent anterior cervical discectomy and fusion (ACDF) of C5-6 and C6-7 that was without complications. Her hospital course was without complications. On the day of discharge, the patient was doing well. She will resume preoperative medications and diet, will use oral medications for pain control, and will followup in the office in 2 weeks for wound check. For further information please see the medical record.
== END 2019-05-12 10:50 | disposition home or self-care (01) | DRG 473 ==
LOC: M OR 05:36 → M MS5PR 13:40
PROVIDERS: ADMIT Orthopaedic Surgery; ATTEND Orthopaedic Surgery
PROC: 0PB30ZZ Excision of Cervical Vertebra, Open Approach (ICD-10-PCS; 2019-05-11)
PROC: 00NW0ZZ Release Cervical Spinal Cord, Open Approach (ICD-10-PCS; 2019-05-11)
PROC: 0RG20A0 Fusion of 2 or more Cervical Vertebral Joints with Interbody Fusion Device, Anterior Approach, Anterior Column, Open Approach (ICD-10-PCS; principal; 2019-05-11 07:30)
DX: M48.02 Spinal stenosis, cervical region (principal); M50.11 Cervical disc disorder with radiculopathy, high cervical region; M50.121 Cervical disc disorder at C4-C5 level with radiculopathy; M50.122 Cervical disc disorder at C5-C6 level with radiculopathy; M50.123 Cervical disc disorder at C6-C7 level with radiculopathy; M25.78 Osteophyte, vertebrae; Z88.0 Allergy status to penicillin; Z79.899 Other long term (current) drug therapy; E78.00 Pure hypercholesterolemia, unspecified; I10 Essential (primary) hypertension; Z90.49 Acquired absence of other specified parts of digestive tract

== ENCOUNTER → 2019-10-18 | Outpatient (REF) | payer OTHER ==
[~2019-10-18] MED LIST changes: -LISI20TA19 PO; +LISI20TA35 PO; +OXYC-517 PO
[2019-10-18 13:30] LABS: ALBUMIN 3.6 GM/DL (3.2-5.2); ALT/SGPT 58 U/L (12-78); BILIRUBIN,TOTAL 0.7 MG/DL (0.2-1.0); BLOOD UREA NITROGEN 13 MG/DL (7-18); CALCIUM LEVEL 8.9 MG/DL (8.5-10.1); CARBON DIOXIDE LEVEL 27 MEQ/L (21-32); CHLORIDE LEVEL 109 MEQ/L (98-107); CHOLESTEROL LEVEL 234 MG/DL (<200); CHOLESTEROL RISK RATIO 4.254 (<5); CREATININE FOR GFR 0.77 MG/DL (0.55-1.30); GLOMERULAR FILTRATION RATE > 60.0 (>51); GLUCOSE, FASTING 87 MG/DL (70-100); HDL CHOLESTEROL 55 MG/DL (>40); LDL CHOLESTEROL 155 MG/DL (<100); NON-HDL-C 179 MG/DL; POTASSIUM SERUM 3.9 MEQ/L (3.5-5.1); SODIUM LEVEL 142 MEQ/L (136-145); TOTAL PROTEIN 6.4 GM/DL (6.4-8.2); TRIGLYCERIDES LEVEL 121 MG/DL (<150)
== END ==
LOC: M SFHCCLAY 08:34
PROVIDERS: ATTEND Family Medicine
DX: E78.2 Mixed hyperlipidemia (principal); I10 Essential (primary) hypertension

== ENCOUNTER → 2020-05-25 | Outpatient (REF) | payer OTHER ==
[~2020-05-25] MED LIST changes: +TRIA37.5 PO; +VITMTA PO
[2020-05-25 16:25] LABS: BLOOD UREA NITROGEN 17 MG/DL (7-18); CALCIUM LEVEL 9.3 MG/DL (8.5-10.1); CARBON DIOXIDE LEVEL 30 MEQ/L (21-32); CHLORIDE LEVEL 105 MEQ/L (98-107); CREATININE FOR GFR 0.83 MG/DL (0.55-1.30); GLOMERULAR FILTRATION RATE > 60.0 (>51); GLUCOSE, FASTING 86 MG/DL (70-100); POTASSIUM SERUM 4.6 MEQ/L (3.5-5.1); SODIUM LEVEL 141 MEQ/L (136-145)
== END ==
LOC: M SFHCCLAY 09:36
PROVIDERS: ATTEND Family Medicine
DX: I10 Essential (primary) hypertension (principal)

== ENCOUNTER → 2020-05-27 | Outpatient (CLI) | payer OTHER | LOC: M LABSMTC 09:22 | PROVIDERS: ATTEND Anesthesiology | DX: Z01.812 Encounter for preprocedural laboratory examination (principal); Z20.822 Contact with and (suspected) exposure to COVID-19 ==

== ENCOUNTER 2020-06-01 10:09 | Day surgery (SDC) | payer OTHER ==
[~2020-06-01] VITALS: Ht 160 cm; Wt 93.0 kg
[~2020-06-01 10:09] MED LIST changes: +KETOROLAC 60MG 2ML VIAL As Ordered ONE; +LIDOCAINE 1% MDV 20ML VIAL SQ PRN; +LIDOCAINE 2% 100MG/5ML SDV (FOR ANES.) As Ordered ONE; +LR 1,000 ML IV ONE; +MIDAZOLAM INJ 2MG/2ML VIAL (J2250 PER 1MG) As Ordered ONE; +ONDANSETRON 4MG/2ML VIAL As Ordered ONE; +fentaNYL 100 MCG/2 ML INJECTION (J3010) As Ordered ONE; +propofoL 200 MG/20 ML VIAL As Ordered ONE
--- OUTSIDE RECORDS SUMMARY | 2020-06-01 10:15 | CCD | Continuity of Care Document ---
Author Author Radha JETER MD Organization Unknown Address [address] [place] [id number] Phone [phone] Care Team Providers Care Clinical Provider Trainer Name Role Phone Otoniel Young MD [facility] [phone] Problems Active Problems Provider Date Essential hypertension Marcia Jeter MD Onset: 03/26/2012 Obesity Kathleen Zhou WHNP Onset: 11/03/2013 Urinary incontinence Kathleen Zhou WHNP Onset: 11/03/2013 Social History Type Date Description Comments Sex Unknown Tobacco Use Start: Unknown Never Smoked Cigarettes ETOH Use Non-smoker, Occasional Drinker, Non-drug User Tobacco Use Start: Unknown Patient has never smoked Smoking Status Reviewed: 05/03/20 Patient has never smoked Exercise Type/Frequency Exercises regularly Allergies, Adverse Reactions, Alerts Active Allergies Reaction Severity Comments Date Penicillin 03/26/2012 Medications Active Medications SIG Qnty Indications Ordering Provide r Date Bisoprolol Fumarate 5mg Tablets 1/2 Tab Daily Unknown Triamterene/Hydrochlorothiazide 37.5-25mg Tablets 1 by mouth in am daily Unknown Immunizations Description No Information Available Vital Signs Date Vital Result Comment 05/03/2020 9:28am BP Systolic 128 mmHg BP Diastolic 76 mmHg Height 63.5 inches 5'3.50" Weight 204.00 lb BMI (Body Mass Index) 35.6 kg/m2 BSA (Body Surface Area) 1.96 m2 04/30/2019 10:32am BP Systolic 138 mmHg BP Diastolic 86 mmHg Height 63.5 inches 5'3.50" Weight 196.00 lb BMI (Body Mass Index) 34.2 kg/m2 BSA (Body Surface Area) 1.93 m2 Results Description No Information Available Procedures Date Code Description Status 04/29/2017 [id number] Mammogram Completed Medical Devices Description No Information Available Encounters Type Date Location Provider Dx Diagnosis Office Visit 05/03/2020 10:30a [facility] drafter patent Marcia Jeter MD Z0 1.411 Encntr for vehicle service agent exam (general) (routine) w abnormal findings 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 N39.3 Stress incontinence (female) (male) Z12.4 Encounter for screening for malignant neoplasm of cervix Z12.39 Encounter for oth screening for malignant neoplasm of breast Z91.89 Oth personal risk factors, n ot elsewhere classified Assessments Date Code Description Provider 05/03/2020 Z01.411 Encounter for gyneco logical examination (general) (routine) with abnormal findings Marcia Jeter MD 05/03/2020 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 Marcia Jeter MD 05/03/2020 N39.3 Stress incontinence (female) (ma le) Marcia Jeter MD 05/03/2020 Z12.4 Encounter for screening for eliz gnant neoplasm of cervix Marcia Jeter MD 05/03/2020 Z12.39 Encounter for other screening for malignant neoplasm of breast Marcia Jeter MD 05/03/2020 Z91.89 Other specified pers onal risk factors, not elsewhere classified Marcia Jeter MD Plan of Treatment Future Appointment(s):* 06/12/2020 11:45 am - Marcia Jeter MD at [facility] drafter patent * 06/01/2020 10:30 am - Marcia Jeter MD at [facility] * 05/07/2021 10:45 am - Marcia Jeter MD at [facility] drafter patent 05/03/2020 - Marcia Jeter MD* Z01.411 Encounter for gynecological examination (general) (routine) with abnormal findings * 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
--- OUTSIDE RECORDS SUMMARY | 2020-06-01 10:15 | CCD ---
Author Author [facility] Organization [facility] Address Unknown Phone Unavailable Care Team Providers Care Envelope Stuffer Name Role Phone Otoniel Young Unavailable PROBLEMS Type Condition ICD9-CM Code [id number] Code Onset Dates Condition S tatus SNOMED Code Notes Problem Mixed hyperlipidemia E78.2 Active 337451617 Problem Essential hypertension I10 Active 20794466 Problem Non morbid obesity due to excess calories E66.09 Active 529191418 Problem Essential tremor G25.0 Active 457702005 Problem Spinal stenosis, cervical region M48.02 Active 47897904 Problem Encounter for general adult medical examination without abnormal findings Z00.00 Active 607209221 Problem Internal impingement of right shoulder M75.41 Active 0112405678641340 Problem 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 6993041228495769 Problem Liver lesion K76.9 Active 767120048 ALLERGIES Allergen (clinical drug ingredient) Drug/Non Drug Allergy do cumented on EMR Reaction Allergy Type Onset Date Status Penicillin (For Allergies Use Only) Rash Drug Allerg y Active ENCOUNTERS from 1965 to 2020-04-25 Encounter Location Date Provider Diagnosis [facility] [address] [place] [address] Apr, Otoniel Young Encounter for immunization Z23 ; Mixed hyperlipidemia E78.2 ; Essential hypertension I10 and Contact dermatitis, unspecified contact dermatitis type, unspecified trigger L25.9 IMMUNIZATIONS Vaccine Route Administration Date Status Influenza (18 yrs & older) Flublok IM Intramuscular Apr 20, 2020 Administered Influenza (18 yrs & older) Flublok IM Intramuscular Jan 13, 2019 Administered Influenza (6mo & up) Fluzone IM Intramuscular May 12, 2018 Ad ministered Influenza (6mo & up) Fluzone IM Intramuscular Mar 26, 2016 Ad ministered Influenza (6mo & up) Fluzone IM Intramuscular Mar 08, 2015 Ad ministered SOCIAL HISTORY Tobacco Use: Social History Observation Description Date Details (start date - stop date) Never Smoker Sex Assigned At : Social History Observation Description Sex Assigned At Unknown Education: Question Answer Notes Level of Education: College Audit Question Answer Notes Total Score: 1 Interpretation: Alcohol Education Language: Question Answer Notes Languages spoken: Hungarian Catholic: Question Answer Notes Catholic 31 None Sexual Hx: Question Answer Notes Had sex in the last 12 months (vaginal, oral, or anal)? Yes Have you ever had an STD? No with Men only Use protection? No Drug and Alcohol Question Answer Notes Total Score: 0 Interpretation: No problems reported BMI Care Goal Follow-Up Question Answer Notes Above Normal BMI Follow-Up Giving encouragement to exercise Tobacco Use: Question Answer Notes Are you a: never smoker never smoker/updated 04/20/2020 REASON FOR REFERRAL No Information VITAL SIGNS Weight 204 lbs Apr, Height 5'3 1/2" in Apr, BMI 35.57 kg/m2 Apr, Heart Rate 66 /min Apr, Respiratory Rate 18 /min Apr, Temperature 98 degrees Fahrenheit Apr, Oximetry 98RA Apr, Blood pressure systolic 131 mm Hg Apr, Blood pressure diastolic 77 mm Hg Apr, MEDICATIONS Medication SIG (Take, Route, Frequency, Duration) Notes Start Da te End Date Status Bisoprolol Fumarate 5 MG TAKE 1/2 TABLET BY MOUTH ONCE A DAY Orally Once a day Active Clobetasol Propionate 0.05 % 1 application Externally Twice a da y Oct, Active Triamterene-HCTZ 37.5-25 MG 1 tablet in the morning Orally Once a day Active Meclizine HCl 25 MG 1 tablet as needed Orally Once a day 0 Oct, Active PROCEDURES from 1963 to 2020-04-25 Procedure Date Ordered Result Body Site Immunization: Flublok Quadrivalent (18 years & older) 0.5mL IM (Influenza) 2020-04-20 N/A RESULTS No Results REASON FOR VISIT 6 month follow up MEDICAL (GENERAL) HISTORY Type Description Date Medical History Kidney stones, 2005 Medical History Hyperlipidemia Medical History Hypertension Medical History Cancer-right breast DCIS Medical History Irregular menstrual cycle Medical History Symptomatic menopausal or female climact ale[place] Medical History Torn rotator cuff right shoulder Surgical History Appendectomy, post surgery infection as well 2010 Surgical History Lithotripsy X 2 Surgical History Cervical ablation 03/2012 Surgical History Colonoscopy 01/2015 Surgical History Zach breast biopsy 05/16/2017 Surgical History tonsillectomy 1970 Surgical History 3 lumpectomies-right breast 07/01,07/10, Surgical History Roatar cuff repair @ [facility] same day surgery 11/02/2018 Surgical History ACDF 05/11/2019 Hospitalization History overnight for appendectomy 2010 Hospitalization History injection after appendectomy 2010 Hospitalization History vaginal childbirth X 3 Hospitalization History Back surgery 05/11/2019 Goals Section No Information Health Concerns No Information MEDICAL EQUIPMENT No Information MENTAL STATUS No Information FUNCTIONAL STATUS No Information ASSESSMENTS Encounter Date Diagnosis Assessment Notes Treatment Notes Treatm ent Clinical Notes Apr, Encounter for immunization (ICD-10 - Z23) Patient Educated with: FLU Vaccine, Inactivated [id number] (FLU Vaccine, Inactivated [id number]), 10 year ASCVD risk using ASCVD Risk Jet Dyeing Machine Tender + calculated to be: 3.8% ; medical tx not indicated Apr, Mixed hyperlipidemia (ICD-10 - E78.2) Apr, Essential hypertension (ICD-10 - I10) Apr, Contact dermatitis, unspecif ied contact dermatitis type, unspecified trigger (ICD-10 - L25.9) PLAN OF TREATMENT Medication Medication Name Sig Start Date Stop Date Bisoprolol Fumarate 5 MG TAKE 1/2 TABLET BY MOUTH ONCE A DAY Orally Once a day Triamterene-HCTZ 37.5-25 MG 1 tablet in the morning Orally Once a day Meclizine HCl 25 MG 1 tablet as needed Orally Once a day Oct, Clobetasol Propionate 0.05 % 1 application Externally Twice a da y Oct, Treatment Notes Assessment Notes Clinical Notes Encounter for immunization Patient Educated with: FLU Vaccine, Inactivated [id number] (FLU Vaccine, Inactivated [id number]), 10 year ASCVD risk using ASCVD Risk Jet Dyeing Machine Tender + calculated to be: 3.8% ; medical tx not indicated Next Appt Details 4 Months Reason: Provider Name:Otoniel Young, 2020-08-18 10 :00:00 AM, [address], [place], [address], Insurance Providers Payer Name Payer Address Payer Phone Insured Name Patient Relati onship to Insured Coverage Start Date Coverage End Date [facility] [id number] [facility] [id number] [phone] [employer] self
--- OUTSIDE RECORDS SUMMARY | 2020-06-01 10:15 | CCD | Continuity of Care Document ---
Author Author Radha JETER MD Organization Unknown Address [address] [place] [address] Phone [phone] Care Team Providers Care Chemical Applicator Name Role Phone Otoniel Young MD [facility] [phone] Problems Active Problems Provider Date Essential hypertension [...] BSA (Body Surface Area) 1.93 m2 Results Test Acquired Date Facility Test Result H/L Range Note Thinprep W/Reflex HR HPV If Asc-US 05/03/2020 [facility] TP Reflex HPV ASCUS Normal Normal 1 TP Reflex HPV ASCUS SEE IMAGE 1 SPECIME N PART A. Cervical, Endocervical, ThinPrep Pap (Live Games Dealer) CYTOLOGY HX-------- Other Information: Ablation Previous Normal Pap: 04/30/19 FINAL DIAGNOSIS---- INTERPRETATION: Negative for Intraepithelial Lesion or Malignancy. SPECIMEN ADEQUACY:Satisfactory for evaluation. Endocervical/transformation zone component present. Procedures Date Code Description Status 04/29/2017 [id number] Mammogram Completed Medical Devices Description No Information Available Encounters Type Date Location Provider Dx Diagnosis Office Visit 05/03/2020 10:30a [facility] Marcia Jeter MD Z0 1.411 Encntr for missile tracking technician exam (general) (routine) w abnormal findings N36.41 [...] 11:45 am - Marcia Jeter MD at [facility] bench * 06/01/2020 10:30 am - Marcia Jeter MD at [facility] * 05/07/2021 10:45 am - Marcia Jeter MD at [facility] bench 05/03/2020 - Marcia Jeter MD* Z01.411 Encounter for gynecological examination (general) (routine) with abnormal findings * 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
--- OUTSIDE RECORDS SUMMARY | 2020-06-01 10:15 | CCD ---
Author Author [facility] Organization [facility] Address Unknown Phone Unavailable Care Team Providers Care Advertising Sales Consultant Name Role Phone KEYSHAWN MIGUEL Unavailable Unavailable CICO, A SOURAV OIL FIELD EQUIPMENT MECHANIC Unavailable Unavailable CICO, A SOURAV OIL FIELD EQUIPMENT MECHANIC Unavailable Unavailable CICO, A SOURAV OIL FIELD EQUIPMENT MECHANIC Unavailable Unavailable CICO, A SOURAV OIL FIELD EQUIPMENT MECHANIC Unavailable Unavailable CICO, A SOURAV OIL FIELD EQUIPMENT MECHANIC Unavailable Unavailable CICO, A SOURAV OIL FIELD EQUIPMENT MECHANIC Unavailable Unavailable CICO, A SOURAV OIL FIELD EQUIPMENT MECHANIC Unavailable Unavailable CICO, A SOURAV OIL FIELD EQUIPMENT MECHANIC Unavailable Unavailable CICO, A SOURAV OIL FIELD EQUIPMENT MECHANIC Unavailable Unavailable CICO, A SOURAV OIL FIELD EQUIPMENT MECHANIC Unavailable Unavailable CICO, A SOURAV OIL FIELD EQUIPMENT MECHANIC Unavailable Unavailable CICO, A SOURAV OIL FIELD EQUIPMENT MECHANIC Unavailable Unavailable CICO, A SOURAV OIL FIELD EQUIPMENT MECHANIC Unavailable Unavailable CICO, A SOURAV OIL FIELD EQUIPMENT MECHANIC Unavailable Unavailable CICO, A SOURAV OIL FIELD EQUIPMENT MECHANIC Unavailable Unavailable CICO, A SOURAV OIL FIELD EQUIPMENT MECHANIC Unavailable Unavailable CICO, A SOURAV OIL FIELD EQUIPMENT MECHANIC Unavailable Unavailable CICO, A SOURAV OIL FIELD EQUIPMENT MECHANIC Unavailable Unavailable CICO, A SOURAV OIL FIELD EQUIPMENT MECHANIC Unavailable Unavailable CICO, A SOURAV OIL FIELD EQUIPMENT MECHANIC Unavailable Unavailable CICO, A SOURAV OIL FIELD EQUIPMENT MECHANIC Unavailable Unavailable CICO, A OSURAV OIL FIELD EQUIPMENT MECHANIC Unavailable Unavailable CICO, A SOURAV OIL FIELD EQUIPMENT MECHANIC Unavailable Unavailable CICO, A SOURAV OIL FIELD EQUIPMENT MECHANIC Unavailable Unavailable CICO, A SOURAV OIL FIELD EQUIPMENT MECHANIC Unavailable Unavailable CICO, A SOURAV OIL FIELD EQUIPMENT MECHANIC Unavailable Unavailable CICO, A SOURAV OIL FIELD EQUIPMENT MECHANIC Unavailable Unavailable CICO, A SOURAV OIL FIELD EQUIPMENT MECHANIC Unavailable Unavailable CICO, A SOURAV OIL FIELD EQUIPMENT MECHANIC Unavailable Unavailable CICO, A SOURAV OIL FIELD EQUIPMENT MECHANIC Unavailable Unavailable CICO, A SOURAV OIL FIELD EQUIPMENT MECHANIC Unavailable Unavailable CICO, A SOURAV OIL FIELD EQUIPMENT MECHANIC Unavailable Unavailable CICO, A SOURAV OIL FIELD EQUIPMENT MECHANIC Unavailable Unavailable CICO, A SOURAV OIL FIELD EQUIPMENT MECHANIC Unavailable Unavailable CICO, A SOURAV OIL FIELD EQUIPMENT MECHANIC Unavailable Unavailable CICO, A SOURAV OIL FIELD EQUIPMENT MECHANIC Unavailable Unavailable CICO, A SOURAV OIL FIELD EQUIPMENT MECHANIC Unavailable Unavailable CICO, A SOURAV OIL FIELD EQUIPMENT MECHANIC Unavailable Unavailable CICO, A SOURAV OIL FIELD EQUIPMENT MECHANIC Unavailable Unavailable CICO, A SOUARV OIL FIELD EQUIPMENT MECHANIC Unavailable Unavailable CICO, A SOURAV OIL FIELD EQUIPMENT MECHANIC Unavailable Unavailable CICO, A SOURAV OIL FIELD EQUIPMENT MECHANIC Unavailable Unavailable CICO, A SOURAV OIL FIELD EQUIPMENT MECHANIC Unavailable Unavailable CICO, A SOURAV OIL FIELD EQUIPMENT MECHANIC Unavailable Unavailable CICO, A SOURAV OIL FIELD EQUIPMENT MECHANIC Unavailable Unavailable CICO, A SOURAV OIL FIELD EQUIPMENT MECHANIC Unavailable Unavailable CICO, A SOURAV OIL FIELD EQUIPMENT MECHANIC Unavailable Unavailable CICO, A SOURAV OIL FIELD EQUIPMENT MECHANIC Unavailable Unavailable CICO, A SOURAV OIL FIELD EQUIPMENT MECHANIC Unavailable Unavailable CICO, A SOURAV OIL FIELD EQUIPMENT MECHANIC Unavailable Unavailable CICO, A SOURAV OIL FIELD EQUIPMENT MECHANIC Unavailable Unavailable MCELHERAN, MIGUEL PA Unavailable Unavailable MCELHERAN, MIGUEL PA Unavailable Unavailable MCELHERAN, MIGUEL PA Unavailable Unavailable MCELHERAN, MIGUEL PA Unavailable Unavailable MCELHERAN, MIGUEL PA Unavailable Unavailable MCELHERAN, MIGUEL PA Unavailable Unavailable MCELHERAN, MIGUEL PA Unavailable Unavailable MCELHERAN, MIGUEL PA Unavailable Unavailable MCELHERAN, MIGUEL PA Unavailable Unavailable MCELHERAN, MIGUEL PA Unavailable Unavailable MCELHERAN, MIGUEL PA Unavailable Unavailable MCELHERAN, MIGUEL PA Unavailable Unavailable MCELHERAN, MIGUEL PA Unavailable Unavailable MCELHERAN, MIGUEL PA Unavailable Unavailable MCELHERAN, MIGUEL PA Unavailable Unavailable MCELHERAN, MIGUEL PA Unavailable Unavailable MCELHERAN, MIGUEL PA Unavailable Unavailable MCELHERAN, MIGUEL PA Unavailable Unavailable MCELHERAN, MIGUEL PA Unavailable Unavailable MCELHERAN, MIGUEL PA Unavailable Unavailable MCELHERAN, MIGUEL PA Unavailable Unavailable MCELHERAN, MIGUEL PA Unavailable Unavailable MCELHERAN, MIGUEL PA Unavailable Unavailable MCELHERAN, MIGUEL PA Unavailable Unavailable MCELHERANMIGUEL PA Unavailable Unavailable MCELHERAN, MIGUEL PA Unavailable Unavailable MCELHERAN, MIGUEL PA Unavailable Unavailable MCELHERAN, MIGUEL PA Unavailable Unavailable WnLyly paul MD Unavailable Unavailable WnLyly paul MD Unavailable Unavailable WnLyly paul MD Unavailable Unavailable Lyly Galvin MD Unavailable Unavailable Lyly Galvin MD Unavailable Unavailable Lyly Galvin MD Unavailable Unavailable Lyly Galvin MD Unavailable Unavailable WnLyly paul MD Unavailable Unavailable Lyly Galvin MD Unavailable Unavailable Lyly Galvin MD Unavailable Unavailable Lyly Galvin MD Unavailable Unavailable Lyly Galvin MD Unavailable Unavailable Lyly Galvin MD Unavailable Unavailable Lyly Galvin MD Unavailable Unavailable Lyly Galvin MD Unavailable Unavailable Lyly Galvin MD Unavailable Unavailable Lyly Galvin MD Unavailable Unavailable Lyly Galvin MD Unavailable Unavailable Lyly Galvin MD Unavailable Unavailable Lyly Galvin MD Unavailable Unavailable Lyly Galvin MD Unavailable Unavailable Lyly Galvin MD Unavailable Unavailable Lyly Galvin MD Unavailable Unavailable Lyly Galvin MD Unavailable Unavailable Lyly Galvin MD Unavailable Unavailable Lyly Galvin MD Unavailable Unavailable Lyly Galvin MD Unavailable Unavailable Lyly Gavlin MD Unavailable Unavailable Lyly Galvin MD Unavailable Unavailable Lyly Galvin MD Unavailable Unavailable Lyly Glavin MD Unavailable Unavailable Lyly Galvin MD Unavailable Unavailable Lyly Galvin MD Unavailable Unavailable Lyly Galvin MD Unavailable Unavailable Lyly Galvin MD Unavailable Unavailable Lyly Galvin MD Unavailable Unavailable Lyly Galvin MD Unavailable Unavailable Lyly Galvin MD Unavailable Unavailable Lyly Galvin MD Unavailable Unavailable Lyly Galvin MD Unavailable Unavailable Lyly Galvin MD Unavailable Unavailable Lyly Galvin MD Unavailable Unavailable Lyly Galvin MD Unavailable Unavailable Kamar ARNOLD, Lyly Loo Unavailable Unavailable Kamar ARNOLD, Lyly Loo Unavailable Unavailable Kamar ARNOLD, Lyly Loo Unavailable Unavailable Kamar ARNOLD, Lyly Loo Unavailable Unavailable Lyly Galvin MD Unavailable Unavailable Lyly Galvin MD Unavailable Unavailable Lyly Galvin MD Unavailable Unavailable Lyly Galvin MD Unavailable Unavailable Lyly Galvin MD Unavailable Unavailable Lyly Galvin MD Unavailable Unavailable Lyly Galvin MD Unavailable Unavailable Kamar ARNOLD, Lyly Loo Unavailable Unavailable Lyly Galvin MD Unavailable Unavailable Lyly Galvin MD Unavailable Unavailable Lyly Galvin MD Unavailable Unavailable Lyly Galvin MD Unavailable Unavailable Lyly Galvin MD Unavailable Unavailable Lyly Galvin MD Unavailable Unavailable Lyly Galvin MD Unavailable Unavailable Lyly Galvin MD Unavailable Unavailable Lyly Galvin MD Unavailable Unavailable Lyly Galvin MD Unavailable Unavailable Kamar ARNOLD, Lyly Loo Unavailable Unavailable Lyly Galvin MD Unavailable Unavailable Lyly Galvin MD Unavailable Unavailable KORT, Lyly STEPHANIE MD Unavailable Unavailable KORT, C STEPHANIE MD Unavailable Unavailable KORT, C STEPHANIE MD Unavailable Unavailable KORT, C STEPHANIE MD Unavailable Unavailable KORT, C STEPHANIE MD Unavailable Unavailable KORT, C STEPHANIE MD Unavailable Unavailable KORT, C STEPHANIE MD Unavailable Unavailable KORT, C STEPHANIE MD Unavailable Unavailable KORT, C STEPHANIE MD Unavailable Unavailable KORT, C STEPHANIE MD Unavailable Unavailable KORT, C STEPHANIE MD Unavailable Unavailable KORT, C STEPHANIE MD Unavailable Unavailable KORT, C STEPHANIE MD Unavailable Unavailable KORT, C STEPHANIE MD Unavailable Unavailable KORT, C STEPHANIE MD Unavailable Unavailable KORT, C STEPHANIE MD Unavailable Unavailable KORT, C STEPHANIE MD Unavailable Unavailable KORT, C STEPHANIE MD Unavailable Unavailable KORT, C STEPHANIE MD Unavailable Unavailable KORT, C STEPHANIE MD Unavailable Unavailable KORT, C STEPHANIE MD Unavailable Unavailable KORT, C STEPHANIE MD Unavailable Unavailable KORT, C STEPHANIE MD Unavailable Unavailable KORT, C STEPHANIE MD Unavailable Unavailable KORT, C STEPHANIE MD Unavailable Unavailable KORT, C STEPHANIE MD Unavailable Unavailable KORT, C STEPHANIE MD Unavailable Unavailable KORT, C STEPHANIE MD Unavailable Unavailable KORT, C STEPHANIE MD Unavailable Unavailable KORT, C STEPHANIE MD Unavailable Unavailable KORT, C STEPHANIE MD Unavailable Unavailable KORT, C STEPHANIE MD Unavailable Unavailable KORT, C STEPHANIE MD Unavailable Unavailable KORT, C STEPHANIE MD Unavailable Unavailable KORT, C STEPHANIE MD Unavailable Unavailable KORT, C STEPHANIE MD Unavailable Unavailable KORT, C STEPHANIE MD Unavailable Unavailable KORT, C STEPHANIE MD Unavailable Unavailable KORT, C STEPHANIE MD Unavailable Unavailable KORT, C STEPHANIE MD Unavailable Unavailable KORT, C STEPHANIE MD Unavailable Unavailable KORT, C STEPHANIE MD Unavailable Unavailable KORT, C STEPHANIE MD Unavailable Unavailable KORT, C STEPHANIE MD Unavailable Unavailable KORT, C STEPHANIE MD Unavailable Unavailable KORT, C STEPHANIE MD Unavailable Unavailable KORT, C STEPHANIE MD Unavailable Unavailable KORT, C STEPHANIE MD Unavailable Unavailable KORT, C STEPHANIE MD Unavailable Unavailable KORT, C STEPHANIE MD Unavailable Unavailable KORT, C STEPHANIE MD Unavailable Unavailable KORT, C STEPHANIE MD Unavailable Unavailable KORT, C STEPHANIE MD Unavailable Unavailable KORT, C STEPHANIE MD Unavailable Unavailable KORT, C STEPHANIE MD Unavailable Unavailable KORT, C STEPHANIE MD Unavailable Unavailable KORT, C STEPHANIE MD Unavailable Unavailable KORT, C STEPHANIE MD Unavailable Unavailable KORT, C STEPHANIE MD Unavailable Unavailable KORT, C STEPHANIE MD Unavailable Unavailable KORT, C STEPHANIE MD Unavailable Unavailable KORT, C STEPHANIE MD Unavailable Unavailable KORT, C STEPHANIE MD Unavailable Unavailable KORT, C STEPHANIE MD Unavailable Unavailable KORT, C STEPHANIE MD Unavailable Unavailable KORT, C STEPHANIE MD Unavailable Unavailable KORT, C STEPHANIE MD Unavailable Unavailable KORT, C STEPHANIE MD Unavailable Unavailable KORT, C STEPHANIE MD Unavailable Unavailable KORT, C STEPHANIE MD Unavailable Unavailable KORT, C STEPHANIE MD Unavailable Unavailable KORT, C STEPHANIE MD Unavailable Unavailable KORT, C STEPHANIE MD Unavailable Unavailable KORT, C STEPHANIE MD Unavailable Unavailable KORT, C STEPHANIE MD Unavailable Unavailable KORT, C STEPHANIE MD Unavailable Unavailable KORT, C STEPHANIE MD Unavailable Unavailable KORT, C STEPHANIE MD Unavailable Unavailable KORT, C STEPHANIE MD Unavailable Unavailable KORT, Lyly CRESPO MD Unavailable Unavailable KORT, Lyly CRESPO MD Unavailable Unavailable KORT, Lyly CRESPO MD Unavailable Unavailable KORT, Lyly CRESPO MD Unavailable Unavailable KORT, Lyly CRESPO MD Unavailable Unavailable KORT, Lyly CRESPO MD Unavailable Unavailable KORT, Lyly CRESPO MD Unavailable Unavailable KORT, C STEPHANIE ARNOLD Unavailable Unavailable KORT, Lyly CRESPO MD Unavailable Unavailable KORT, C STEPHANIE ARNOLD Unavailable Unavailable KORT, C STEPHANIE ARNOLD Unavailable Unavailable KORT, C STEPHANIE ARNOLD Unavailable Unavailable KORT, C STEPHANIE ARNOLD Unavailable Unavailable KORT, C STEPHANIE ARNOLD Unavailable Unavailable KORT, C STEPHANIE ARNOLD Unavailable Unavailable KORT, C STEPHANIE ARNOLD Unavailable Unavailable Lamont, Keyshawn Unavailable Lamont, Keyshawn Unavailable Lamont, Keyshawn Unavailable Lamont, Keyshawn Unavailable Lamont, Keyshawn Unavailable JETER, Fredo VILLEDA MD Unavailable Unavailable JETER, L ORNAL ARNOLD Unavailable Unavailable JETER, L RONAL ARNOLD Unavailable Unavailable JETER, L RONAL ARNOLD Unavailable Unavailable JETER, L RONAL ARNOLD Unavailable Unavailable JETER, L RONAL ARNOLD Unavailable Unavailable JETER, L RONAL ARNOLD Unavailable Unavailable JETER, L RONAL ARNOLD Unavailable Unavailable JETER, L RONAL ARNOLD Unavailable Unavailable JETER, L RONAL ARNOLD Unavailable Unavailable JETER, L RONAL ARNOLD Unavailable Unavailable JETER, L RONAL ARNOLD Unavailable Unavailable JETER, L RONAL ARNOLD Unavailable Unavailable JETER, L RONAL ARNOLD Unavailable Unavailable JETER, L RONAL ARNOLD Unavailable Unavailable JTEER, L RONAL ARNOLD Unavailable Unavailable JETER, L RONAL ARNOLD Unavailable Unavailable JETER, L RONAL ARNOLD Unavailable Unavailable JETER, L RONAL ARNOLD Unavailable Unavailable JETER, L RONAL ARNOLD Unavailable Unavailable JETER, L RONAL ARNOLD Unavailable Unavailable JETER, L RONAL ARNOLD Unavailable Unavailable JETER, L RONAL ARNOLD Unavailable Unavailable JETER, L RONAL ARNOLD Unavailable Unavailable JETER, L RONAL ARNOLD Unavailable Unavailable JETER, L RONAL ARNOLD Unavailable Unavailable JETER, L RONAL ARNOLD Unavailable Unavailable JETER, L RONAL ARNOLD Unavailable Unavailable JETER, Fredo VILLEDA MD Unavailable Unavailable JETER, L RONAL ARNOLD Unavailable Unavailable JETER, L RONAL ARNOLD Unavailable Unavailable JETER, Fredo BERKOWITZCI MD Unavailable Unavailable Fredo JETER MD Unavailable Unavailable Fredo JETER MD Unavailable Unavailable Fredo JETER MD Unavailable Unavailable Fredo JETER MD Unavailable Unavailable Fredo JETER MD Unavailable Unavailable Fredo JETER MD Unavailable Unavailable Fredo JETER MD Unavailable Unavailable Fredo JETER MD Unavailable Unavailable Fredo JETER MD Unavailable Unavailable Fredo JETER MD Unavailable Unavailable Fredo JETER MD Unavailable Unavailable Duenas, Miguel Otf PA Unavailable Unavailable Duenas, Miguel Otf PA Unavailable Unavailable Duenas, Miguel Otf PA Unavailable Unavailable Duenas, Miguel Otf PA Unavailable Unavailable Duenas, Miguel Otf PA Unavailable Unavailable Duenas, Miguel Otf PA Unavailable Unavailable Duenas, Miguel Otf PA Unavailable Unavailable Duenas, Miguel Otf PA Unavailable Unavailable Duenas, Miguel Otf PA Unavailable Unavailable Duenas, Miguel Otf PA Unavailable Unavailable Duenas, Miguel Otf PA Unavailable Unavailable Duenas, Miguel Otf PA Unavailable Unavailable Duenas, Miguel Otf PA Unavailable Unavailable Duenas, Miguel Otf PA Unavailable Unavailable Duenas, Miguel Otf PA Unavailable Unavailable Duenas, Miguel Otf PA Unavailable Unavailable Duenas, Miguel Otf PA Unavailable Unavailable Duenas, Miguel Otf PA Unavailable Unavailable Duenas, Miguel Otf PA Unavailable Unavailable Duenas, Miguel Otf PA Unavailable Unavailable Duenas, Miguel Otf PA Unavailable Unavailable Duenas, Miguel Otf PA Unavailable Unavailable Duenas, Miguel Otf PA Unavailable Unavailable Duenas, Miguel Otf PA Unavailable Unavailable Duenas, Miguel Otf PA Unavailable Unavailable Duenas, Miguel Otf PA Unavailable Unavailable Duenas, Miguel Otf PA Unavailable Unavailable Duenas, Miguel Otf PA Unavailable Unavailable Duenas, Miguel Otf PA Unavailable Unavailable Duenas, Miguel Otf PA Unavailable Unavailable Rudy Young MD Unavailable Unavailable Rudy Young MD Unavailable Unavailable Rudy Young MD Unavailable Unavailable Rudy Young MD Unavailable Unavailable Rudy Young MD Unavailable Unavailable Rudy Young MD Unavailable Unavailable Rudy Young MD Unavailable Unavailable Rudy Young MD Unavailable Unavailable Rudy Young MD Unavailable Unavailable Rudy Yougn MD Unavailable Unavailable Rudy Young MD Unavailable Unavailable Rudy Young MD Unavailable Unavailable Rudy Young MD Unavailable Unavailable Rudy Young MD Unavailable Unavailable Rudy Young MD Unavailable Unavailable Rudy Young MD Unavailable Unavailable Rudy Young MD Unavailable Unavailable Rudy Young MD Unavailable Unavailable Rudy Young MD Unavailable Unavailable Rudy Young MD Unavailable Unavailable Rudy Young MD Unavailable Unavailable Rudy Young MD Unavailable Unavailable Rudy Young MD Unavailable Unavailable Rudy Young MD Unavailable Unavailable Rudy Young MD Unavailable Unavailable Rudy Young MD Unavailable Unavailable Rudy Young MD Unavailable Unavailable Rudy Young MD Unavailable Unavailable Rudy Young MD Unavailable Unavailable Rudy Young MD Unavailable Unavailable Rudy Young MD Unavailable Unavailable Rudy Young MD Unavailable Unavailable Rudy Young MD Unavailable Unavailable Rudy Young MD Unavailable Unavailable Rudy Young MD Unavailable Unavailable Rudy Young MD Unavailable Unavailable Rudy Young MD Unavailable Unavailable Rudy Young MD Unavailable Unavailable Rudy Young MD Unavailable Unavailable Rudy Young MD Unavailable Unavailable Rudy Young MD Unavailable Unavailable Rudy Young MD Unavailable Unavailable Rudy Young MD Unavailable Unavailable Rudy Young MD Unavailable Unavailable Rudy Young MD Unavailable Unavailable Rudy Young MD Unavailable Unavailable Rudy Young MD Unavailable Unavailable Rudy Young MD Unavailable Unavailable Rudy Young MD Unavailable Unavailable Rudy Young MD Unavailable Unavailable Rudy Young MD Unavailable Unavailable Rudy Young MD Unavailable Unavailable Rudy Young MD Unavailable Unavailable Rudy Young MD Unavailable Unavailable Rudy Young MD Unavailable Unavailable Rudy Young MD Unavailable Unavailable Rudy Young MD Unavailable Unavailable Rudy Young MD Unavailable Unavailable Rudy Young MD Unavailable Unavailable Rudy Young MD Unavailable Unavailable Rudy Young MD Unavailable Unavailable Rudy Young MD Unavailable Unavailable Rudy Young MD Unavailable Unavailable Rudy Young MD Unavailable Unavailable Rudy Young MD Unavailable Unavailable Rudy Young MD Unavailable Unavailable Rudy Young MD Unavailable Unavailable Rudy Young MD Unavailable Unavailable Rudy Young MD Unavailable Unavailable Rudy Young MD Unavailable Unavailable Rudy Young MD Unavailable Unavailable Rudy Young MD Unavailable Unavailable CICO, A SOURAV OIL FIELD EQUIPMENT MECHANIC Unavailable Unavailable CICO, A SOURAV OIL FIELD EQUIPMENT MECHANIC Unavailable Unavailable CICO, A SOURAV OIL FIELD EQUIPMENT MECHANIC Unavailable Unavailable CICO, A SOURAV OIL FIELD EQUIPMENT MECHANIC Unavailable Unavailable CICO, A SOURAV OIL FIELD EQUIPMENT MECHANIC Unavailable Unavailable CICO, A SOURAV OIL FIELD EQUIPMENT MECHANIC Unavailable Unavailable CICO, A SOURAV OIL FIELD EQUIPMENT MECHANIC Unavailable Unavailable CICO, A SOURAV OIL FIELD EQUIPMENT MECHANIC Unavailable Unavailable CICO, A SOURAV OIL FIELD EQUIPMENT MECHANIC Unavailable Unavailable CICO, A SOURAV OIL FIELD EQUIPMENT MECHANIC Unavailable Unavailable CICO, A SOURAV OIL FIELD EQUIPMENT MECHANIC Unavailable Unavailable CICO, A SOURAV OIL FIELD EQUIPMENT MECHANIC Unavailable Unavailable CICO, A SOURAV OIL FIELD EQUIPMENT MECHANIC Unavailable Unavailable CICO, A SOURAV OIL FIELD EQUIPMENT MECHANIC Unavailable Unavailable CICO, A SOURAV OIL FIELD EQUIPMENT MECHANIC Unavailable Unavailable CICO, A SOURAV OIL FIELD EQUIPMENT MECHANIC Unavailable Unavailable CICO, A SOURAV OIL FIELD EQUIPMENT MECHANIC Unavailable Unavailable CICO, A SOURAV OIL FIELD EQUIPMENT MECHANIC Unavailable Unavailable CICO, A SOURAV OIL FIELD EQUIPMENT MECHANIC Unavailable Unavailable CICO, A SOURAV OIL FIELD EQUIPMENT MECHANIC Unavailable Unavailable CICO, A SOURAV OIL FIELD EQUIPMENT MECHANIC Unavailable Unavailable CICO, A SOURAV OIL FIELD EQUIPMENT MECHANIC Unavailable Unavailable CICO, A SOURAV OIL FIELD EQUIPMENT MECHANIC Unavailable Unavailable CICO, A SOURAV OIL FIELD EQUIPMENT MECHANIC Unavailable Unavailable CICO, A SOURAV OIL FIELD EQUIPMENT MECHANIC Unavailable Unavailable CICO, A SOURAV OIL FIELD EQUIPMENT MECHANIC Unavailable Unavailable CICO, A SOURAV OIL FIELD EQUIPMENT MECHANIC Unavailable Unavailable CICO, A SOURAV OIL FIELD EQUIPMENT MECHANIC Unavailable Unavailable CICO, A SOURAV OIL FIELD EQUIPMENT MECHANIC Unavailable Unavailable CICO, A SOURAV OIL FIELD EQUIPMENT MECHANIC Unavailable Unavailable CICO, A SOURAV OIL FIELD EQUIPMENT MECHANIC Unavailable Unavailable CICO, A SOURAV OIL FIELD EQUIPMENT MECHANIC Unavailable Unavailable CICO, A SOURAV OIL FIELD EQUIPMENT MECHANIC Unavailable Unavailable CICO, A SOURAV OIL FIELD EQUIPMENT MECHANIC Unavailable Unavailable CICO, A SOURAV OIL FIELD EQUIPMENT MECHANIC Unavailable Unavailable CICO, A SOURAV OIL FIELD EQUIPMENT MECHANIC Unavailable Unavailable CICO, A SOURAV OIL FIELD EQUIPMENT MECHANIC Unavailable Unavailable CICO, A SOURAV OIL FIELD EQUIPMENT MECHANIC Unavailable Unavailable CICO, A SOURAV OIL FIELD EQUIPMENT MECHANIC Unavailable Unavailable CICO, A SOURAV OIL FIELD EQUIPMENT MECHANIC Unavailable Unavailable CICO, A SOURAV OIL FIELD EQUIPMENT MECHANIC Unavailable Unavailable CICO, A SOURAV OIL FIELD EQUIPMENT MECHANIC Unavailable Unavailable CICO, A SOURAV OIL FIELD EQUIPMENT MECHANIC Unavailable Unavailable CICO, A SOURAV OIL FIELD EQUIPMENT MECHANIC Unavailable Unavailable CICO, A SOURAV OIL FIELD EQUIPMENT MECHANIC Unavailable Unavailable CICO, A SOURAV OIL FIELD EQUIPMENT MECHANIC Unavailable Unavailable CICO, A SOURAV OIL FIELD EQUIPMENT MECHANIC Unavailable Unavailable CICO, A SOURAV OIL FIELD EQUIPMENT MECHANIC Unavailable Unavailable CICO, A SOURAV OIL FIELD EQUIPMENT MECHANIC Unavailable Unavailable CICO, A SOURAV OIL FIELD EQUIPMENT MECHANIC Unavailable Unavailable CICO, A SOURAV OIL FIELD EQUIPMENT MECHANIC Unavailable Unavailable LAMONT, KEYSHAWN Unavailable Unavailable Re-disclosure Warning The records that you are about to access may contain information from federally-assisted alcohol or drug abuse programs. If such information is present, then the following federally mandated warning applies: This information has been disclosed to you from records protected by federal confidentiality rules (42 CFR part 2). The federal rules prohibit you from making any further disclosure of this information unless further disclosure is expressly permitted by the written consent of the person to whom it pertains or as otherwise permitted by 42 CFR part 2. A general authorization for the release of medical or other information is NOT sufficient for this purpose. The Federal rules restrict any use of the information to criminally investigate or prosecute any alcohol or drug abuse patient.The records that you are about to access may contain highly sensitive health information, the redisclosure of which is protected by Article 27-F of the [facility] Public Health law. If you continue you may have access to information: Regarding HIV / AIDS; Provided by facilities licensed or operated by the [facility] Office of Mental Health; or Provided by the [facility] Office for People With Developmental Disabilities. If such information is present, then the following [facility] mandated warning applies: This information has been disclosed to you from confidential records which are protected by state law. State law prohibits you from making any further disclosure of this information without the specific written consent of the person to whom it pertains, or as otherwise permitted by law. Any unauthorized further disclosure in violation of state law may result in a fine or residential sentence or both. A general authorization for the release of medical or other information is NOT sufficient authorization for further disc losure. Allergies and Adverse Reactions Type Description Substance Reaction Status Data Source(s ) Drug allergy Penicillin (For Allergies Use Only) Drug allergy Rash Active eCW1 ([facility]) Family History Family Member Name Family Member Gender Family Member Status Date o f Status Description Data Source(s) Unknown Male Problem [facility] ([place] [facility] Unknown Female Problem [facility] Encounters Encounter Providers Location Date Indications Data Source(s ) Outpatient Attender: RONAL Sy Woman translator deaf 09:30:00 AM EST MEDENT ([facility] [employer]) Outpatient [address] [facility], [facility] [address] 04/20/2020 12:00:00 AM EST eCW1 ([facility]) Outpatient Referrer: Keyshawn Miguel 03/14/2020 11:33:33 AM [facility] Attender: KEYSHAWN MIGUELAttender: KEYSHAWN Desouza-KISHAN 03/14/2020 09:40:39 AM EST - 03/14/2020 11:33:43 AM EST [facility] Unknown [address] [place] [phone] 01/04/2020 12:00:00 AM EDT eCW1 ([facility]) Unknown [address] [place] [address] [place] [address] 01/04/2020 12:00:00 AM EDT eCW1 ([facility]) [address] [place] [address] 10/19/2019 12:00:00 AM EDT eCW1 ([facility]) Outpatient Attender: MIGUEL TYSON Physical Therapy 09/16/2019 09:15:00 AM EDT MEDENT ([facility] ) Outpatient Referrer: SOURAV DURAN NP 09/02/2019 10:27:21 AM E DT [facility] [address], [facility] [address] 06/30/2019 12:00:00 AM EDT eCW1 ([facility]) Outpatient Attender: Eze Galvin MDReferrer: Otoniel Young MD 06/24/2019 02:58:10 AM EDT [facility] Recurring Patient Attender: Otf Duenas PAReferrer: Otoniel Young MD 06/16/2019 10:19:26 AM EST [facility] [address], [place] [address] 06/12/2019 12:00:00 AM EST [facility] [address] [place] [address] 06/02/2019 12:00:00 AM EST eCW1 ([facility]) [address] [address] 05/19/2019 12:00:00 AM EST eCW1 ([facility]) [address], [place] [address] 05/18/2019 12:00:00 AM EST eCW1 ([facility]) [facility] Julio [address] [facility] [place] [address] 05/13/2019 12:00:00 AM EST eCW1 ([facility]) [facility] Stephon [address] [facility] [address] 05/06/2019 12:00:00 AM EST eCW1 ([facility]) [facility] Stephon [address] [facility] [address] 04/18/2019 12:00:00 AM EST eCW1 ([facility]) Outpatient Referrer: STEPHANIE GERMAN MD 04/12/2019 11:12:37 AM E [facility] Outpatient Attender: SOURAV DURAN NP [facility] 9 09:12:08 AM EST - 04/12/2019 11:12:34 AM EST [facility] Outpatient Referrer: SOURAV DURAN NP 01/06/2019 03:49:44 PM E [facility] Immunizations Vaccine Date Status Description Data Source(s) influenza, recombinant, quadrIvalent,injectable, prese rvative free 04/20/2020 09:46:00 AM EST completed eCW1 ([facility]) Medications Medication Brand Name Start Date Product Form Dose Route Admi nistrative Instructions Pharmacy Instructions Status Indications Reaction Description Data Source(s) Hydrochlorothiazide 25 MG / Triamterene 37.5 MG Oral Tablet triamterene- hydrochlorothiazide (MAXZIDE-25) 37.5-25 MG per tablet triamterene- hydrochlorothiazide (MAXZIDE-25) 37.5-25 MG per tablet 01/27/2020 12:00:00 AM EDT 1 {tbl} Oral active Take 1 tablet by mouth [facility] Clobetasol Propionate 0.5 MG/ML Topical Cream Clobetas ol Propionate 0.05 % Clobetasol Propionate 0.05 % 10/19/2019 12:00:00 AM EDT 1.0 {applicat ion} active Clobetasol Propionate 0.05 % eCW1 ([facility]) Clobetasol Propionate 0.5 MG/ML Topical Cream Clobetas ol Propionate 0.05 % Clobetasol Propionate 0.05 % 10/19/2019 12:00:00 AM EDT 1.0 {applicat ion} active Clobetasol Propionate 0.05 % eCW1 ([facility]) Meclizine Hydrochloride 25 MG Oral Tablet Meclizine HC l 25 MG Meclizine HCl 25 MG 10/19/2019 12:00:00 AM EDT 1.0 {tablet_as_needed} active Meclizine HCl 25 MG eCW1 ([facility]) Clobetasol Propionate 0.5 MG/ML Topical Cream Clobetas ol Propionate 0.05 % Clobetasol Propionate 0.05 % 10/19/2019 12:00:00 AM EDT 1.0 {applicat ion} active Clobetasol Propionate 0.05 % eCW1 ([facility]) Meclizine Hydrochloride 25 MG Oral Tablet Meclizine HC l 25 MG Meclizine HCl 25 MG 10/19/2019 12:00:00 AM EDT 1.0 {tablet_as_needed} active Meclizine HCl 25 MG eCW1 ([facility]) Meclizine Hydrochloride 25 MG Oral Tablet Meclizine HC l 25 MG Meclizine HCl 25 MG 10/19/2019 12:00:00 AM EDT 1.0 {tablet_as_needed} active Meclizine HCl 25 MG eCW1 ([facility]) Hydrochlorothiazide 25 MG / Triamterene 37.5 MG Oral Tablet Triamterene-HCTZ 37.5-25 MG Triamterene-HCTZ 37.5-25 MG 06/14/2019 12:00:00 AM EST active 1 tablet in the morning eCW1 ([facility]) Mupirocin 0.02 MG/MG Topical Ointment [Bactroban] Bactroban 05/03/2019 12:00:00 AM EST active [facility] ([facility] ) chlorhexidine gluconate 40 MG/ML Medicated Liquid Soap [Hibi clens] Hibiclens 05/03/2019 12:00:00 AM EST active MEDENT ([facility]) Acetaminophen 325 MG / Oxycodone Hydrochloride 5 MG Or al Tablet Oxycodone-Acetaminophen 05/03/2019 12:00:00 AM EST ORAL active MEDENT ([facility]) 10 mEq 04/14/2019 12:00:00 AM EST capsule, extended relea se 30 TAKE ONE CAPSULE BY MOUTH EVERY DAY WITH FOOD TAKE ONE CAPSULE BY MOUTH EVERY DAY WITH FOOD SOLD: 04/19/2019 [facility] 5 mg 01/20/2019 12:00:00 AM EDT tablet 15 TAKE 1/2 TABLET BY MOUTH ONCE DAILY TAKE 1/2 TABLET BY MOUTH ONCE DAILY SOLD: 04/19/2019 [facility] 20-12.5 mg 12/23/2018 12:00:00 AM EDT tablet 30 TAKE 1 TABLET BY MOUTH ONCE A DAY TAKE 1 TABLET BY MOUTH ONCE A DAY SOLD: 04/19/2019 [facility] Insurance Providers Payer name Policy type / Coverage type Policy ID Covered alliance party ID Covered alliance party's relationship to singh Policy Singh Plan Information [facility] [id number] SP [id number] [facility] [id number] SP [id number] R [id number] R [id number] Maria De Jesus [id number] [facility] [id number] SP [id number] R F [id number] SELF [id number] [facility] [id number] SP [id number] ANSI-Commercial [id number] ANSI-Commercial [id number] ANSI-Commercial [id number] ANSI-Commercial [id number] Umr (pr) Commercial [id number] Self [id number] ANSI-Commercial [id number] ANSI-Commercial [id number] UMR F [id number] SELF [id number] ANSI-Commercial [id number] ANSI-Commercial [id number] UMR [facility] [id number] SP [id number] Umr (pr) Commercial [id number] Self [id number] Umr (pr) Commercial [id number] Self [id number] Umr (pr) Commercial [id number] Self [id number] Umr (pr) Commercial [id number] Self [id number] Umr (pr) Commercial [id number] Self [id number] UMR [facility] [id number] SP [id number] UMR [facility] [id number] SP [id number] UMR [facility] [id number] SP [id number] Umr (pr) Commercial [id number] Self [id number] Umr (pr) Commercial [id number] Self [id number] ANSI-Commercial [id number] ANSI-Commercial [id number] ANSI-Commercial [id number] ANSI-Commercial [id number] UMR O [id number] S [id number] ANSI-Commercial [id number] ANSI-Commercial [id number] ANSI-Commercial [id number] ANSI-Commercial [id number] ANSI-Commercial [id number] ANSI-Commercial [id number] [employer] [id number] Maria De Jesus [id number] ANSI-Commercial [id number] ANSI-Commercial [id number] ANSI-Commercial [id number] ANSI-Commercial [id number] ANSI-Commercial [id number] ANSI-Commercial [id number] [employer] [id number] SP [id number] [employer] [id number] Maria De Jesus [id number] [employer] PI PI POMCO [id number] Maria De Jesus [id number] [employer] PPO O [id number] S [id number] [employer] COMM SELF [id number] S [id number] [employer] [id number] SP [id number] [employer] Commercial Self Problems, Conditions, and Diagnoses Code Display Name Description Problem Type Effective Dates Data Source(s) M48.02 [id number] Spinal stenosis, cervical region Problem 05/06/2019 12:00:00 AM EST eCW1 ([facility]) M48.02 [id number] Spinal stenosis, cervical region Problem 05/06/2019 12:00:00 AM EST eCW1 ([facility]) Surgeries/Procedures Procedure Description Date Indications Data Source(s) Immunization: Flublok Quadrivalent (18 years & older) 0.5mL IM (Influenza) 04/20/2020 12:00:00 AM EST eCW1 ([facility]) RADEX SPINE CERVICAL 2/3 VIEWS 09/16/2019 12:00:00 AM EDT MEDENT ([facility]) RADEX SPINE CERVICAL 2/3 VIEWS 06/24/2019 12:00:00 AM EDT MEDENT ([facility]) ALLOGRAFT FOR SPINE SURGERY ONLY STRUCTURAL 05/11/2019 12:00:00 AM EST MEDENT ([facility]) Arthrodesis Anterior Interbody Technique W/Diskectomy, Below C2 05/11/2019 12:00:00 AM EST MEDENT ([facility]) Arthrodesis Anterior Interbody Technique W/Diskectomy, Below C2 05/11/2019 12:00:00 AM EST MEDENT ([facility]) Arthrodesis Anterior Interbody Technique Each Addtl Interspa ce 05/11/2019 12:00:00 AM EST MEDENT ([facility]) Arthrodesis Anterior Interbody Technique Each Addtl Interspa ce 05/11/2019 12:00:00 AM EST MEDENT ([facility]) Spinal Instrumentation Anterior 3 Vertebral Segments (List S epara 05/11/2019 12:00:00 AM EST MEDENT ([facility]) Spinal Instrumentation Anterior 3 Vertebral Segments (List S epara 05/11/2019 12:00:00 AM EST MEDENT ([facility]) Vertebral Corpectomy Decompress Cervical, Anterior Approach 05/11/2019 12:00:00 AM EST MEDENT ([facility]) Vertebral Corpectomy Decompress Cervical, Anterior Approach 05/11/2019 12:00:00 AM EST MEDENT ([facility]) Vertebral Corpectomy Decompress Cervical Ea Addtl, Ant Appro ach 05/11/2019 12:00:00 AM EST MEDENT ([facility]) Vertebral Corpectomy Decompress Cervical Ea Addtl, Ant Appro ach 05/11/2019 12:00:00 AM EST MEDENT ([facility]) Results ID Date Data Source [id number] 05/27/2020 09:00:00 AM EST [facility] Name Value Range Interpretation Code Description Data Sheree rce(s) Supporting Document(s) SARS coronavirus 2 RNA Not Detected [facility] This lab was ordered by [facility] and reported by [facility]. ID Date Data Source [id number] 05/03/2020 12:00:00 PM EST [facility] ([facility]) Name Value Range Interpretation Code Description Data Sheree rce(s) Supporting Document(s) TP Reflex HPV ASCUS Laboratory test result [facility] (Yossi Stahl [facility] [employer]) SPECIMEN PART------ A. Cervical, Endocervical, ThinPrep Pap (Ramp Jockey) CYTOLOGY HX-------- Other Information: Ablation Previous Normal Pap: 04/30/19 FINAL DIAGNOSIS---- INTERPRETATION: Negative for Intraepithelial Lesion or Malignancy. SPECIMEN ADEQUACY:Satisfactory for evaluation. Endocervical/transformation zone component present. TP Reflex HPV ASCUS Laboratory test result [facility] ([facility] [employer]) ID Date Data Source [id number] 03/14/2020 11:51:04 AM EST [facility] NT INFORMATIONPatient MRN Name Date of Age Gend*PT [id number] Radha Bolton 1965 54 years F ---PT Location Admission Date/Time Visit ID Attending Provider --- --- --- --- EPI ID CSN Admitting Provider [id number] ---03/14/20 Radha Bolton [id number] female 54 yearsMaryjes Bolton is a patient of Dr. German.Pertinent History:Radha was initially seen 04/[address] Jeter for a right nipplechange and possible palpable lump. She was seen by Dr Jeter and she was sentfor imaging. On April 29, 2017 she had bilateral mammogram and a r ight breastultrasound. The mammogram revealed heterogeneous the dense breast tissue.There is a benign calcification the left which was unchanged. In the area ofthe palpable abnormality there was no dominant mass, microcalcifications orarchitectural distortion noted. There were no suspicious findings tomosynthesiseither. An ultrasound was performed in the area the palpable lump and that 2showed no abnormality. Her imaging was BI-RADS 2, benign findings. We offered 2options, 1 of them would be a 3 month follow-up examination with repeat imagingfor an MRI. She opted for an MRI which showed a linear non mass like enhancement in theright retroareolar region so MRI guided biopsy was recommended of this. In theleft there was an area of clumped enhancement in the central aspect so an MRIguided biopsy was recommended of this area as well. Biopsy was performedFebruary 2017 and the right biopsy revealed atypical ductal hyperplasiaadjacent to and involving a micro papilloma. The left biopsy showed fibrocysticchange and a fibroadenomatoid nodule. She underwent an excisional biopsy for the atypical ductal hyperplasia/papillomaof the right breast, the surgical pathology revealed grade 1 DCIS, ER positive,WA negative. She did have a positive margin, so a re- excision was performedJuly 10 which unfortunately revealed more positive margins. Additionalre-excision was performed August 26, 2017 and the pathology revealed 2 tiny foci ofresidual DCIS, but her margins were all negative. Diagnosis/Surgical Pathology 06/2017, 07/2017, 08/2017:RIGHT breast grade 1 DCIS, cribiform type, 1.5 cm, ER+, WA weak, [id number], Stage0 Adjuvant treatment:She was placed on tamoxifen and then switched to anastrozole, the plan is for 10yrs of antiestrogen hormonal therapy. She completed a course of acceleratedadjuvant radiation 09/2017. She discontinued the adjuvant hormonal therapy dueto side effects. Breast Care Team:Surgeon: Dr Vance Duran MSN, ANP-Atif Vick RN, Nurse NavigatorMedical Oncologist: Dr RiveraRadiation Oncologist: Dr Casey Since this was not seen by mammography / ultrasound, but found by MRI, we willalternate MRI with mammography. 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 Her imaging today is benign, BI-RADS 2 B. Shedoes tell me she's had new right breast tenderness for about three weeks. Shedenies any trauma or injury to breast. I did reassure her that it is quitecommon to have subsequent breast tenderness after lumpectomy, especially sinceshe had re-excision x 2 following her lumpectomy as well has radiation. Andother than her breast being a bit tender on exam, her imaging is benign andthere is no lumps or masses noted. We agreed to follow up in four weeks withphone call to check on her tenderness, hopefully this will resolve on its own.If still present or worsening we could obtain ultrasound. She will be due fornext breast MRI in September 2020. She does have significant family history ofcancer, specifically breast cancer in three maternal aunts.She tells me she no longer follows with radiation oncology, she had seen in the past. She continues to follow with medical oncology, Dr. Rivera,believes she has next appointment in the spring.She does perform self breast/chest wall examination and notes no change. Shedenies feeling any new lumps, bumps, denies breast pain, tenderness or nippledischarge.Her appetite is good, she is eating and drinking well, no change in bowelpattern, no new headaches, no vertigo, no new shortness of breath, no new chestpains, no unintentional weight loss, and no new bony aches or pains that wouldbe worrisome for metastatic disease.Current Meds:Current Outpatient Medications: bisoprolol (ZEBETA) 5 MG tablet, Take 2.5 mg by mouth daily, Disp: , Rfl: 2 Calcium Citrate (CALCITRATE PO), Take 600 mg by mouth daily, Disp: , Rfl: lisinopril-hydrochlorothiazide (PRINZIDE,ZESTORETIC) 10-12.5 MG per tablet,Take 2 tablets by mouth 2 (two) times a day , Disp: , Rfl: potassium chloride (MICRO-K) 10 MEQ CR capsule, Take 10 mEq by mouth, Disp: ,Rfl: 5 triamterene-hydrochlorothiazide (MAXZIDE-25) 37.5-25 MG per tablet, Take 1tablet by mouth, Disp: , Rfl:Allergies:AllergiesAllergen Reactions Penicillins RashPast Medical History:Diagnosis Date Atypical ductal hyperplasia of right breast, s/p MRI guided right breastbiopsy 05/201706/11/2017 Breast lump right Heavy menstrual bleeding ablation Herniated disc, cervical Hyperlipidemia Hypertension Kidney stones RIGHT breast grade 1 DCIS, cribiform type, 0.4 cm, ER+, WA weak, [id number],Stage 0 07/09/2017 S/P lumpectomy, right breast 06/2017, re-excision lumpectomy 07/2017,re- excision lumpectomy 08/2017, Dr German 07/09/2017Family HistoryProblem Relation Age of Onset Healthy, No Significant History Mother Healthy, No Significant History Father Healthy, No Significant History Sister Healthy, No Significant History Brother Healthy, No Significant History Daughter Breast cancer Maternal Aunt 48 Colon cancer Maternal Uncle 67 cause of Cervical cancer Maternal Grandmother 39 Healthy, No Significant History Maternal Grandfather Healthy, No Significant History Paternal Grandmother Healthy, No Significant History Paternal Grandfather Pulmonary embolism Daughter Healthy, No Significant History Daughter Breast cancer Maternal Aunt 30 Breast cancer Maternal Aunt 50 Breast cancer Maternal Aunt 70 Colon cancer Maternal Aunt 57 Cervical cancer Cousin 21 Kidney cancer Cousin 45 Other Maternal Uncle 74 Glioblastoma Malig Hyperthermia Neg HxSocial HistorySocioeconomic History Marital status: Spouse name: Not on file Number of children: Not on file Years of education: Not on file Highest education level: Not on fileOccupational History Not on fileSocial Needs Financial resource strain: Not on file Food insecurity: Worry: Not on file Inability: Not on file Transportation needs: Medical: Not on file Non-medical: Not on fileTobacco Use Smoking status: Never Smoker Smokeless tobacco: Never UsedSubstance and Sexual Activity Alcohol use: Yes Comment: occasionally Drug use: No Sexual activity: Not on fileLifestyle Physical activity: Days per week: Not on file Minutes per session: Not on file Stress: Not on fileRelationships Social connections: Talks on phone: Not on file Gets together: Not on file Attends rastafarian service: Not on file Active member of club or organization: Not on file Attends meetings of clubs or organizations: Not on file Relationship status: Not on file Intimate partner violence: Fear of current or ex partner: Not on file Emotionally abused: Not on file Physically abused: Not on file Forced sexual activity: Not on fileOther Topics Concern Bike Helmet Not Asked History of Breast Feeding Not Asked Self-Exams Not Asked Caffeine Concern Not Asked Hobby Hazards Not Asked Sleep Concern Not Asked Daily Calcium Supplement Not Asked Lead Exposure Not Asked Special Diet Not Asked Daily Vitamin D Supplement Not Asked Service Not Asked Stress Concern Not Asked Domestic Violence in home Not Asked Radon exposure Not Asked Weight Concern Not Asked Exercise Not Asked Seat Belt Not Asked Well water Not Asked Firearms in home Not Asked History of Falls Not AskedSocial History Narrative Not on filePast Surgical History:Procedure Laterality Date ABCESS DRAINAGE 08/2010 infection from appendectomy ANTERIOR CERVICAL DISCECTOMY W/ FUSION 2019 APPENDECTOMY 08/2010 BREAST SURGERY Right 07/01/2017 Procedure: LUMPECTOMY W MAMMO NEEDLE LOCAL RIGHT; Surgeon: Stephanie German MD;Laterality: Right; BREAST SURGERY Right 07/10/2017 Procedure: RE EXCISION LUMPECTOMY RIGHT; Surgeon: Stephanie German MD;Laterality: Right; BREAST SURGERY Right 08/26/2017 Procedure: RE EXCISION BREAST RIGHT TAKING NIPPLE AND AREOLAR COMPLEX;Surgeon: Stephanie German MD; Laterality: Right; 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 No signs of apparent distress present. Alert andoriented. Patient is a good historian.Head/Face: Atraumatic, normocephalic and no lesions or masses.Eyes: Conjunctivae pink.No icterus of the sclerae bilaterally.ENMT: Oral mucosa: pink and moist with no lesions.Neck: Supple. Palpation reveals no lymphadenopathy, swelling or tenderness.Trachea midline.Resp: Respirations are regular. Lungs are clear bilaterally.CV: Rate is regular. Rhythm is regular. Extremities: No clubbing, cyanosis oredema.Breasts: Breast exam was performed while patient was in a supine position and klaudia sitting postion. Breasts are Large in size and symmetrical. No dimpling of thebreasts bilaterally. Breasts are normal and no dominant mass on both breasts.Bilateral infraclavicular nodes are non-palpable. Nipples: There is no nippledischarge, dimpling or nipple retraction of LEFT nipple. RIGHT nipple has beensurgically removed. Right breast slight generalized tenderness to palpation.Axillae: Axillae are normal to palpation bilaterally, but no lymphadenopathy ofthe axillae.Musculo: Walks with a normal gait for age. Upper Extremities: Full ROMbilaterally. Lower Extremities: Full ROM bilaterally.Skin: No jaundice, lesion, rash.Neuro: Upper Extremities: Lower Extremities: Neuro reveals no focal deficits.Today's imaging reveals:CLINICAL HISTORY: History of DCIS of the right breast with lumpectomy. LastClinical Breast Exam:March 2020. COMPARISON: 04/12/2019 and 03/23/2018 mammograms. TECHNIQUE: Craniocaudal and oblique views were obtained digitally.Craniocaudal views were reviewed by CAD. Digital Breast Tomosynthesis wasobtained. FINDINGS: There are scattered fibroglandular densities. A left breast biopsyclip is seen. Benign-type calcification is seen. Right breast postsurgicalchanges are seen.No dominant mass, suspicious microcalcifications, architectural distortion orskin/nipple thickening or retraction is seen. There are no significant changes compared to the prior study/studies. IMPRESSION: Benign findings mammogram with Digital Breast Tomosynthesis.A follow up mammogram is recommended in one year as per the [employer]. CLASSIFICATION: BI-RADS 2 - BENIGN FINDINGS.Assessment / Plan:1. RIGHT breast grade 1 DCIS, cribiform type, 0.4 cm, ER+, WA weak, [id number],Stage 0 (SJIA or External) Mammography 3D diagnostic bilateral with CAD & jeanna (SJIA or External) Mammography 3D diagnostic bilateral with CAD & jeanna MRI breast bilateral without and with IV contrast w/CAD2. Atypical ductal hyperplasia of right breast, s/p MRI guided right breastbiopsy 05/2017 (SJIA or External) Mammography 3D diagnostic bilateral with CAD &jeanna (SJIA or External) Mammography 3D diagnostic bilateral with CAD & jeanna MRI breast bilateral without and with IV contrast w/CAD3. Breast cancer screening, high risk patient (SJIA or External) Mammography 3Ddiagnostic bilateral with CAD & jeanna (SJIA or External) Mammography 3D diagnostic bilateral with CAD & jeanna MRI breast bilateral without and with IV contrast w/CADAssessment: Patient has a benign breast exam and benign bilateral mammogram.Right breast with some generalized tenderness on exam, otherwise no worrisomefindings. Will phone her in four weeks to check up on tenderness. Advised herto call sooner if symptoms worsen.Follow-up:1. The patient will follow-up in 1 year with a bilateral mammogram.2. MRI due in September 2020 - we will call her with the results once they areavailable.At today's appointment we discussed the physical examination and imagingfindings, and any questions they had were answered.We look for to seeing at her next appointment and we would be happy to see herin the interim if needed. She understands she can contact us at any time if shenotes any change in her self breast/chest wall exam, or has any questionsregarding her breast health.Dr German and Dr Fregoso's office follows NCCN guidelines for benign and malignantbreast disease, she is my collaborating physician. I have followed protocolsestablished with them, and periodically review charts with them.Certain parts of this note may have been carried over from prior notes tomaintain patient's pertinent medical history and continuity of care. The detailswere verified and edited as appropriate.Signature: Keyshawn Miguel NPDate: March 14, 2020Time: 11:50 AMThis document or parts of this document, were dictated using V[employer]rm software. A reasonable attempt at proofreading has beenmade to minimi ze errors. Please call with any questions or corrections. Name Value Range Interpretation Code Description Data Sheree rce(s) Supporting Document(s) ID Date Data Source [id number] 03/14/2020 10:19:00 AM EST [facility] DIAG BL W CAD W TOMOSYNTHESISCLINICAL HISTORY: History of DCIS of the right breast with lumpectomy. Last Clinical Breast Exam:March 2020.COMPARISON: 04/12/2019 and 03/23/2018 mammograms.TECHNIQUE: Craniocaudal and oblique views were obtained digitally. Craniocaudal views were reviewed by CAD. Digital Breast Tomosynthesis was obtained.FINDINGS: There are scattered fibroglandular densities. A left breast biopsy clip is seen. Benign-type calcification is seen. Right breast postsurgical changes are seen.No dominant mass, suspicious microcalcifications, architectural distortion or skin/nipple thickening or retraction is seen.There are no significant changes compared to the prior study/studies.IMPRESSION: Benign findings mammogram with Digital Breast Tomosynthesis.A follow up mammogram is recommended in one year as per the [employer].CLASSIFICATION: BI-RADS 2 - BENIGN FINDINGS.ACR Breast Density: B- Scattered fibroglandular densityResultCode: BR 2 BDISCLAIMER: According to the [employer] and the [employer], any patient with a lifetime risk assessment greater than 20% or patients with dense breasts (heterogeneously or extremely dense), may benefit from additional screening tests for breast cancer. Further screening tests for patients with dense breasts (heterogeneously or extremely dense) should be based upon the patient's breast cancer risk status. All patients, having their mammogram with [facility], with a lifetime risk assessment greater than 20% or with dense breasts, will be given the opportunity to meet with our certified breast health navigator to discuss their risk and further imaging options.Further screening test includes Ultrasound and MR (Magnetic Resonance) imaging.Dictated by: KALI HARTLEY M.D. on 03/14/2020 Transcribed by: gloria on 03/14/2020 10:44 [facility] G code: , ,CDS Modifier: , ,cc: Name Value Range Interpretation Code Description Data Sheree rce(s) Supporting Document(s) ID Date Data Source [id number] 09/21/2019 01:49:00 PM EDT [facility]: MRI BREAST BILATERAL WO AND W IV CONTRASTCLINICAL HISTORY: Dense breast,breast cancer screening and Intraductal carcinoma in situ of breast/atypical ductal hyperplasia.COMPARISON: Previous MRI from 09/21/2018.TECHNIQUE: Multiplanar multi sequence imaging of both breasts was performed at 1.5 Karla using a dedicated breast imaging coil. Following intravenous administration of 18 ml of MultiHance from a 20 ml vial, dynamic postcontrast axial images were obtained. Delayed sagittal imaging was also performed. The study was reviewed on a 3D WEbook workstation.FINDINGS: Breast parenchyma is composed of scattered fibroglandular tissue within a predominantly fatty background. Following contrast administration there is mild background parenchymal enhancement.Right breast: Stable anterior postsurgical change.No mass or distortion is seen. No suspicious washout or clumped enhancement is identified.Left breast: Artifact from biopsy marker in the mid left breastno mass or distortion is seen. No suspicious washout or clumped enhancement is identified.No abnormal adenopathy is appreciated bilaterally. Chest wall appears unremarkable.IMPRESSION: No MR evidence of malignancy bilaterally. No significant change from the prior study.MRI BI-RADS 2: Benign findings.Dictated by: CHEMA BLANKENSHIP M.D. on 09/21/2019 Transcribed by: gloria on 09/21/2019 01:56 PMcc: Name Value Range Interpretation Code Description Data [facility] Supporting Document(s) ID Date Data Source [id number] 06/24/2019 02:58:10 AM EDT [facility], PCName: Radha Lubin: 1965Provider: Wayne Galvin: 06/16/2019 History of Present IllnessThe patient's post- surgical course has been without complication. Rehabilitation is progressing normally. The patient denies increased pain, increased swelling, fever, chills or purulent drainage. Right shoulder arthroscopy, debridement decompression and rotator cuff repair, for failure of conservative care, 11/02/2018. Since last seen, March 2019, she underwent anterior cervical fusion, may have lost some ground with her shoulder in terms of motion and stiffness, but "no pain". She is now 8 Months postop right shoulder. Doing relatively well, improved over baseline, when last seen, she was continuing with home exercises and with physical therapy, observing restrictions, no new injuries or activities. No mechanical complaints. Significant improvement. Results/Data XRays previously taken were reviewed today. on 11/11/2018. Side: Right Site: Shoulder Views: 3 Views AP/Outlet/Axillary Findings: No fractures, dislocations, or other significant abnormalities. hardware is in good position. Post-surgical changes and/or hardware are satisfactory. no evidence of implant loosening. subacromial decompression is satisfactory. AC joint decompression is satisfactory. AssessmentSubsequent encounter, postoperative course, doing pretty well status p ost right shoulder arthroscopy, debridement decompression and rotator cuff repair, nearly 8 months postop. Since her last visit, she has undergone anterior cervical fusion, and may have lost some ground with her rehabilitation. However doing reasonably well. I recommended she return to exercises as tolerated. Continue rehabilitation and home exercises as discussed, may progress activities as tolerated. No restrictions, follow-up as needed. PlanPlan, Assessment and Recommendation(s) The plan for the patient is activities as tolerated and PT/HEP, RICE, Meds. continue with current plan. Not Comp, No-Fault, or Liability. Schedule Appointment: Months: 3 Schedule next visit with: Otf Duenas PA-C. Work / School NoteThe percentage of temporary impairment is 0%. The patient is not working at this time. Radha Bolton is retired. Radha Bolton is on total disability until next visit. This document was dictated and electronically signed using [employer] Speaking software. A reasonable attempt at proof reading has been made to minimize errors. Please call with any questions. Signatures Electronically signed by : Eze Galvin M.D.; Jun 24 2019 2:58AM EST (Author) Name Value Range Interpretation Code Description Data Sheree rce(s) Supporting Document(s) ID Date Data Source Basic Metabolic Profile (BMP) 05/06/2019 12:00:00 AM EST eCW 1 ([facility]) Name Value Range Interpretation Code Description Data Sheree rce(s) Supporting Document(s) 0.88 0.55-1.30 CREATININE FOR GFR eCW1 ([facility]) 94 70-100 GLUCOSE, FASTING eCW1 ([facility]) 16 7-18 BLOOD UREA NITROGEN eCW1 ([facility]) > 60.0 >51 GLOMERULAR FILTRATION RATE eCW 1 ([facility]) 4.1 3.5-5.1 POTASSIUM SERUM eCW1 ([facility]) 143 136-145 SODIUM LEVEL eCW1 ([facility]) 108 98-107 CHLORIDE LEVEL eCW1 ([facility]) 28 21-32 CARBON DIOXIDE LEVEL eCW1 ([facility]) 9.5 8.5-10.1 CALCIUM LEVEL eCW1 ([facility]) ID Date Data Source CBC - Complete Blood Count 05/06/2019 12:00:00 AM EST eCW1 ( [facility]) Name Value Range Interpretation Code Description Data Sheree rce(s) Supporting Document(s) 4.97 4.00-5.40 RED BLOOD COUNT eCW1 ([facility]) 5.2 4.0-10.0 WHITE BLOOD COUNT eCW1 ([facility]) 46.2 36.0-47.0 HEMATOCRIT eCW1 ([facility]) 14.5 12.0-15.5 HEMOGLOBIN eCW1 ([facility]) 93.0 80.0-96.0 MEAN CORPUSCULAR VOLUME e CW1 ([facility]) 29.2 27.0-33.0 MEAN CORPUSCULAR HEMOGLOB IN eCW1 ([facility]) 31.4 32.0-36.5 MEAN CORPUSCULAR HGB CONC eCW1 ([facility]) 12.9 11.5-14.5 RED CELL DISTRIBUTION WID TH eCW1 ([facility]) 283 150-450 PLATELET COUNT, AUTOMATED eCW1 ([facility]) ID Date Data Source [id number] 04/12/2019 04:26:40 PM EST [facility] CenterPATIE NT INFORMATIONPatient MRN Name Date of Age Gend*PT [id number] Radha Bolton 1965 53 years F ---PT Location Admission Date/Time Visit ID Attending Provider --- --- --- --- EPI ID CSN Admitting Provider [id number] ---Assessment/Plan:Radha was seen today for a follow up appointment and breast imaging.1. 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 She had an MRI performed 6 months ago which showedno abnormally enhancing areas. 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 Berhaneaddi see her back in 1 year for another examination and a bilateral diagnosticmammogram the same day. I will set her up for the MRI in 6 months, we will callher with those results when they become available. I wished her good here, trupti be having cervical herniated disc surgery at this point next year.At today's appointment we discussed the physical examination and imagingfindings, and any questions they had were answered.We look forward to seeing at her next appointment and we would be happy to seeher in the interim if needed. She understands she can contact us at any time ifshkj notes any change in her self breast/chest wall exam, or has any questionsregarding her breast health.Orders Placed This EncounterProcedures (SJIA or External) Mammography 3D diagnostic bilateral with CAD & jeanna Standing Status: Future Number of Occurrences: 1 Standing Expiration Date: 06/11/2020 Order Specific Question: Signs and/or Symptoms necessitating exam: Answer: hx of right DCIS, loss of nipple with lumpectomy MRI breast bilateral without and with IV contrast w/CAD Standing Status: Future Number of Occurrences: 1 Standing Expiration Date: 04/11/2020 Scheduling Instructions: NO appt needed, MRI only Please remind them they will receive IV contrast, so HYDRATE well a few daysbefore and day of the testing. Will call with the results Order Specific Question: Reason for Exam: Answer: hx of DCIS noted on MRI, not found on mammo Order Specific Question: Is the patient ? Answer: No Order Specific Question: Does the patient have metallic implants? Answer: Blaire German and Dr Fregoso's office follows NCCN guidelines for benign and malignantbreast disease, she is my collaborating physician. I have followed protocolsestablished with them, and periodically review charts with them.Certain parts of this note may have been carried over from prior notes tomaintain patient's pertinent medical history and continuity of care. The detailswere verified and edited as appropriate.This d ocument or parts of this document, were dictated using [employer]. A reasonable attempt at proofreading has been made to minimizeerrors. Please call with any questions or corrections.Subjective: Patient ID: Radha Bolton is a [place] 53 years female here today for a followup.Pertinent History:Radha was initially seen 04/[address] Jeter for a right nipplechange and possible palpable lump. She was seen by Dr Jeter and she was sentfor imaging. On April 29, 2017 she had bilateral mammogram and a right breastultrasound. The mammogram revealed heterogeneous the dense breast tissue.There is a benign calcification the left which was unchanged. In the area ofthe palpable abnormality there was no dominant mass, microcalcifications orarchitectural distortion noted. There were no suspicious findings tomosynthesiseither. An ultrasound was performed in the area the palpable lump and that 2showed no abnormality. Her imaging was BI-RADS 2, benign findings. We offered 2options, 1 of them would be a 3 month follow-up examination with repeat imagingfor an MRI. She opted for an MRI which showed a linear non mass like enhancement in theright retroareolar region so MRI guided biopsy was recommended of this. In theleft there was an area of clumped enhancement in the central aspect so an MRIguided biopsy was recommended of this area as well. Biopsy was performedFebruary 2017 and the right biopsy revealed atypical ductal hyperplasiaadjacent to and involving a micro papilloma. The left biopsy showed fibrocysticchange and a fibroadenomatoid nodule. She underwent an excisional biopsy for the atypical ductal hyperplasia/papillomaof the right breast, the surgical pathology revealed grade 1 DCIS, ER positive,WA negative. She did have a positive margin, so a re- excision was performedJuly 10 which unfortunately revealed more positive margins. Additionalre-excision was performed August 26, 2017 and the pathology revealed 2 tiny foci ofresidual DCIS, but her margins were all negative. Diagnosis/Surgical Pathology 06/2017, 07/2017, 08/2017:RIGHT breast grade 1 DCIS, cribiform type, 1.5 cm, ER+, WA weak, [id number], Stage0 Adjuvant treatment:She was placed on tamoxifen and then switched to anastrozole, the plan is for 10yrs of antiestrogen hormonal therapy. She completed a course of acceleratedadjuvant radiation 09/2017. She discontinued the adjuvant hormonal therapy dueto side effects. Breast Care Team:Surgeon: Dr Vance Duran MSN, ANP-Atif Vick, RN, Nurse NavigatorMedical Oncologist: Dr RiveraRadiation Oncologist: Dr Casey Since this was not seen by mammography / ultrasound, but found by MRI, we willalternate MRI with mammography. 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 She had been experiencing right sided pain at lateral edge of herbreast, work up showed no mets.She had right rotator cuff repair this year and has completed PT. They noted aright hand tremor, work up revealed C5 herniate disc, she will have thisrepaired at some point.She does perform self breast/chest wall examination and notes no change ornipple discharge.Their appetite is good, eating and drinking well, no change in bowel pattern, nonew headaches, no vertigo, no new shortness of breath, no new chest pains, nounintentional weight loss, no new bony aches or pains that would be worrisomefor metastatic disease.The most recent breast imaging reveals:(SJIA or External) Mammography 3D diagnostic bilateral with CAD & tomoCLINICAL HISTORY: History of right DCIS with lumpectomy. Last clinical breastexam: September 2018.COMPARISON: Priors dating back to 04/29/2017.TECHNIQUE: Digital Mammogram with Breast Tomosynthesis of each breast wereobtained with CAD.FINDINGS: There are scattered areas of fibroglandular density.No developing masses or suspicious calcifications are seen. Benign-appearingcalcifications are noted.A biopsy clip is again noted in the left breast.IMPRESSION: No mammographic features of malignancy.A follow up mammogram is recommended in one year as per the [employer].CLASSIFICATION: BI-RADS 2 - BENIGN FINDINGS.ACR Breast Density: B- Scattered fibroglandular densityResultCode: BR 2 BDISCLAIMER: According to [employer] and the AmericanCancer Society, any patient with a lifetime risk assessment greater than 20% orpatients with dense breasts (heterogeneously or extremely dense), may benefitfrom additionalscreening tests for breast cancer. Further screening tests for patients withdense breasts (heterogeneously or extremely dense) should be based upon thepatient's breast cancer risk status. All patients, [facility],with a lifetime risk assessment greater than 20% or with dense breasts, will begiven the opportunity to meet with our certified breast health navigator todiscuss their risk and further imaging optio ns.Further screening test includes Ultrasound and MR (Magnetic Resonance) imaging.Dictated by: ISHAAN TUCKER M.D. on 04/12/2019 Transcribed by: gloria on 04/12/2019 10:30 [facility] [address]:SAMIA KUMAR[address] [facility] [address] [id number]: MRI RIGHT BREAST:There is heterogeneous fibroglandular tissue. There is mild backgroundparenchymal enhancement. Postsurgical changes are noted about the anterioraspect of the breast. No suspicious areas of post-contrast enhancement orlymphadenopathy.MRI LEFT BREAST:There is heterogeneous fibroglandular tissue. There is mild backgroundparenchymal enhancement. Biopsy clip artifact is noted about the central aspectof the breast. No suspicious areas of post contrast enhancement orlymphadenopathy.IMPRESSION: No MRI features of malignancy. Follow-up bilateral breast MRI inone year is recommended.MRI BI-RADS Category 2: Benign findings.Dictated by: ISHAAN TUCKER M.D. on 09/21/2018AllergiesAllergen Reactions Penicillins RashPrior to Admission medicationsMedication Sig Start Date End Date Taking? Authorizing Providerbisoprolol (ZEBETA) 5 MG tablet Take 2.5 mg by mouth daily 03/07/19 YesHistorical Provider, MDCalcium Citrate (CALCITRATE PO) Take 600 mg by mouth daily Yes HistoricalProvider, MDlisinopril- hydrochlorothiazide (PRINZIDE,ZESTORETIC) 10-12.5 MG per tablet Take2 tablets by mouth 2 (two) times a day 04/09/17 Yes Historical Provider, MDpotassium chloride (MICRO-K) 10 MEQ CR capsule Take 10 mEq by mouth 03/08/19Yes Historical Provider, MDPast Medical History:Diagnosis Date Atypical ductal hyperplasia of right breast, s/p MRI guided right breastbiopsy 05/201706/11/2017 Breast lump right Heavy menstrual bleeding ablation Herniated disc, cervical Hyperlipidemia Hypertension Kidney stones RIGHT breast grade 1 DCIS, cribiform type, 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, ER+, WA weak, [id number],Stage 0 07/09/2017 S/P lumpectomy, right breast 06/2017, re-excision lumpectomy 07/2017,re- excision lumpectomy 08/2017, Dr German 07/09/2017Past Surgical History:Procedure Laterality Date ABCESS DRAINAGE 08/2010 infection from appendectomy APPENDECTOMY 08/2010 BREAST SURGERY Right 07/01/2017 Procedure: LUMPECTOMY W MAMMO NEEDLE LOCAL RIGHT; Surgeon: Stephanie German MD;Laterality: Right; BREAST SURGERY Right 07/10/2017 Procedure: RE EXCISION LUMPECTOMY RIGHT; Surgeon: Stephanie German MD;Laterality: Right; BREAST SURGERY Right 08/26/2017 Procedure: RE EXCISION BREAST RIGHT TAKING NIPPLE AND AREOLAR COMPLEX;Surgeon: Stephanie German MD; Laterality: Right; 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 ENDOMETRIAL ABLATION 03/2012 LITHOTRIPSY 07/2001 ROTATOR CUFF REPAIR 2018 right TONSILLECTOMY 1970 WISDOM TOOTH EXTRACTION 03/1982Family HistoryProblem Relation Age of Onset Healthy, No Significant History Mother Healthy, No Significant History Father Healthy, No Significant History Sister Healthy, No Significant History Brother Healthy, No Significant History Daughter Breast cancer Maternal Aunt 48 Colon cancer Maternal Uncle 67 cause of Cervical cancer Maternal Grandmother 39 Healthy, No Significant History Maternal Grandfather Healthy, No Significant History Paternal Grandmother Healthy, No Significant History Paternal Grandfather Pulmonary embolism Daughter Healthy, No Significant History Daughter Breast cancer Maternal Aunt 30 Breast cancer Maternal Aunt 50 Breast cancer Maternal Aunt 70 Colon cancer Maternal Aunt 57 Cervical cancer Cousin 21 Kidney cancer Cousin 45 Other Maternal Uncle 74 Glioblastoma Malig Hyperthermia Neg HxSocial HistoryTobacco Use Smoking status: Never Smoker Smokeless tobacco: Never UsedSubstance Use Topics Alcohol use: Yes Comment: occasionally Drug use: NoReview of SystemsConstitutional: Negative. Negative for appetite change and unexpected weightchange.HENT: Negative.Eyes: Negative.Respiratory: Negative. Negative for cough and shortness of breath.Cardiovascular: Negative.Gastrointestinal: Negative.Endocrine: Negative.Genitourinary: Negative.Musculoskeletal: Positive for neck stiffness. Negative for arthralgias andmyalgias.Skin: Negative.Neurological: Positive for tremors and weakness. Negative for dizziness andheadaches.Hematological: Negative.Psychiatric/Behavioral: Negative.The above ROS are not new findings according the the patient.Objective:The breast / chest wall examination was performed in the upright and supineposition and reveals:pendulous, asymmetric breasts.Bilateral axillae: no lymphadenopathyNo evidence of lymphedema of the upper extremitiesLEFT & RIGHT breast/chest wall: no discoloration, no skin dimpling, puckering,or tethering, and left everted nipple with no discharge, no visible or palpablemasses or nodules. Right breast no nipple areole complex, her lumpectomyincision is well-healed, this breast is little smaller and denser than theother, unchanged from prior examBlood pressure 130/78, pulse 70, resp. rate 18, height 1.6 m (5' 3"), weight (!)112 kg (247 lb), SpO2 95 %, not currently .Physical ExamConstitutional: She is oriented to person, place, and time. She appearswell-developed and well-nourished.HENT:Head: Normocephalic and atraumatic.Neck: Normal range of motion. Neck supple. No thyroid mass and no thyromegalypresent.Pulmonary/Chest: Effort normal. No respiratory distress.Abdominal: Soft. She exhibits no mass. There is no guarding.Musculoskeletal: Normal range of motion.Lymphadenopathy: Head (right side): No submental, no submandibular, no tonsillar, nopreauricular and no posterior auricular adenopathy present. Head (left side): No submental, no submandibular, no tonsillar, nopreauricular and no posterior auricular adenopathy present. She has no cervical adenopathy. She has no axillary adenopathy. Right: No supraclavicular adenopathy present. Left: No supraclavicular adenopathy present.Neurological: She is alert and oriented to person, place, and time.Skin: Skin is warm and dry.Psychiatric: She has a normal mood and affect. Her behavior is normal. Judgmentand thought content normal. Name Value Range Interpretation Code Description Data Sheree rce(s) Supporting Document(s) ID Date Data Source [id number] 04/12/2019 10:04:00 AM EST [facility] DIAG BL W CAD W TOMOSYNTHESISCLINICAL HISTORY: History of right DCIS with lumpectomy. Last clinical breast exam: September 2018.COMPARISON: Priors dating back to 04/29/2017.TECHNIQUE: Digital Mammogram with Breast Tomosynthesis of each breast were obtained with CAD.FINDINGS: There are scattered areas of fibroglandular density.No developing masses or suspicious calcifications are seen. Benign- appearing calcifications are noted.A biopsy clip is again noted in the left breast.IMPRESSION: No mammographic features of malignancy.A follow up mammogram is recommended in one year as per the [employer].CLASSIFICATION: BI-RADS 2 - BENIGN FINDINGS.ACR Breast Density: B- Scattered fibroglandular densityResultCode: BR 2 BDISCLAIMER: According to [employer] and the [employer], any patient with a lifetime risk assessment greater than 20% or patients with dense breasts (heterogeneously or extremely dense), may benefit from additional screening tests for breast cancer. Further screening tests for patients with dense breasts (heterogeneously or extremely dense) should be based upon the patient's breast cancer risk status. All patients, having their mammogram with [facility], with a lifetime risk assessment greater than 20% or with dense breasts, will be given the opportunity to meet with our certified breast health navigator to discuss their risk and further imaging options.Further screening test includes Ultrasound and MR (Magnetic Resonance) imaging.Dictated by: ISHAAN TUCKER M.D. on 04/12/2019 Transcribed by: gloria on 04/12/2019 10:30 [facility] [address]:SAMIA [id number] [facility] [id number] [id number] Name Value Range Interpretation Code Description Data Sheree rce(s) Supporting Document(s) ID Date Data Source [id number] 04/08/2019 02:31:00 PM EST [facility] ([facility]) Name Value Range Interpretation Code Description Data Sheree rce(s) Supporting Document(s) Laboratory test finding (navigational concept) <pending> [facility] ([facility]) Procedure Social History Code Duration Value Status Description Data Source(s ) Smoking 05/03/2020 12:00:00 AM EST Patient has never smoked co mpleted Patient has never smoked [facility] ([facility] [employer]) Smoking 04/20/2020 12:00:00 AM EST Never Smoker completed Never S moker eCW1 ([facility]) Alcohol intake 03/14/2020 12:00:00 AM EST Yes completed [facility] Smoking 03/14/2020 12:00:00 AM EST Never smoker completed Never s moker [facility] Smoking 10/19/2019 12:00:00 AM EDT Never Smoker completed Never S moker eCW1 ([facility]) Smoking 10/19/2019 12:00:00 AM EDT Never Smoker completed Never S moker eCW1 ([facility]) Vital Signs ID Date Data Source UNK Name Value Range Interpretation Code Description Data Source(s) Body surface area Derived from formula 1.96 m2 1.96 m2 [facility] ([facility] [employer] [facility]) Body mass index (BMI) [Ratio] 35.6 kg/m2 35.6 k g/m2 [facility] ([facility] [employer] [facility]) Body weight 204.00 [lb_av] 204.00 [lb_av] MEDEN T ([facility] [employer] [facility]) Body height 63.5 [in_i] 63.5 [in_i] [facility] ([facility] [employer]) 5'3.50" Diastolic blood pressure 76 mm[Hg] 76 mm[Hg] [facility] ([facility] [employer]) Systolic blood pressure 128 mm[Hg] 128 mm[Hg] M EDENT ([facility] [employer] [facility]) Diastolic blood pressure 77 mm[Hg] 77 mm[Hg] eCW1 ([facility]) Systolic blood pressure 131 mm[Hg] 131 mm[Hg] e CW1 ([facility]) Body temperature 98 [degF] 98 [degF] eCW1 ([facility]) Respiratory rate 18 /min 18 /min eCW1 ([facility]) Heart rate 66 /min 66 /min eCW1 ([facility]) Body mass index (BMI) [Ratio] 35.57 kg/m2 35.57 kg/m2 W1 ([facility]) Body height [in_i] eCW1 ([facility]) Body weight 204 [lb_av] 204 [lb_av] eCW1 ([facility]) Body mass index (BMI) [Ratio] 35.43 kg/m2 35.43 kg/m2 [facility] Body weight 90.719 kg 90.719 kg [facility] Body height 160 cm 160 cm [facility] Heart rate 67 /min 67 /min [facility] Diastolic blood pressure 79 mm[Hg] 79 mm[Hg] [facility] Systolic blood pressure 135 mm[Hg] 135 mm[Hg] [facility] Body temperature 98.4 [degF] 98.4 [degF] [facility] ([facility]) Respiratory rate 16 /min 16 /min [facility] ( [facility]) Body mass index (BMI) [Ratio] 33.5 kg/m2 33.5 k g/m2 [facility] ([facility]) Body weight 195.00 [lb_av] 195.00 [lb_av] MEDEN T ([facility]) Body height 64 [in_i] 64 [in_i] [facility] ([facility]) 5'4" Body temperature 98.5 [degF] 98.5 [degF] [facility] ([facility]) Heart rate 84 /min 84 /min [facility] ([facility]) Diastolic blood pressure 80 mm[Hg] 80 mm[Hg] [facility] ([facility]) Systolic blood pressure 139 mm[Hg] 139 mm[Hg] M EDENT ([facility]) Diastolic blood pressure 84 mm[Hg] 84 mm[Hg] eCW1 ([facility]) Systolic blood pressure 146 mm[Hg] 146 mm[Hg] e CW1 ([facility]) Body temperature 97.9 [degF] 97.9 [degF] eCW1 ( [facility]) Respiratory rate 18 /min 18 /min eCW1 ([facility]) Heart rate 86 /min 86 /min eCW1 ([facility]) Body mass index (BMI) [Ratio] 32.86 kg/m2 32.86 kg/m2 W1 ([facility]) Body height [in_us] eCW1 ([facility]) Body weight Measured 188.5 [lb_av] 188.5 [lb_av ] eCW1 ([facility]) Body surface area Derived from formula 1.93 m2 1.93 m2 [facility] ([facility] [employer] [facility]) Body mass index (BMI) [Ratio] 34.2 kg/m2 34.2 k g/m2 [facility] ([facility]) Body weight 196.00 [lb_av] 196.00 [lb_av] MEDEN T ([facility] [facility]) Body height 63.5 [in_i] 63.5 [in_i] [facility] ([facility] [employer] [facility]) 5'3.50" Diastolic blood pressure 86 mm[Hg] 86 mm[Hg] [facility] ([facility]) Systolic blood pressure 138 mm[Hg] 138 mm[Hg] M EDENT ([facility] [facility]) Body surface area 1.93 m2 1.93 m2 [facility] ([facility] [employer]) Patient Treatment Plan of Care Planned Activity Planned Date Details Description Data Source (s) Hydrochlorothiazide 25 MG / Triamterene 37.5 MG Oral T ablet 01/27/2020 12:00:00 AM EDT [facility] Meclizine Hydrochloride 25 MG Oral Tablet 10/19/2019 12:00:00 AM ED T eCW1 ([facility]) Clobetasol Propionate 0.5 MG/ML Topical Cream 10/19/2019 12:00:00 A M EDT eCW1 ([facility]) Meclizine Hydrochloride 25 MG Oral Tablet 10/19/2019 12:00:00 AM ED T eCW1 ([facility]) Clobetasol Propionate 0.5 MG/ML Topical Cream 10/19/2019 12:00:00 A M EDT eCW1 ([facility]) Meclizine Hydrochloride 25 MG Oral Tablet 10/19/2019 12:00:00 AM ED T eCW1 ([facility]) Clobetasol Propionate 0.5 MG/ML Topical Cream 10/19/2019 12:00:00 A M EDT eCW1 ([facility]) Hydrochlorothiazide 25 MG / Triamterene 37.5 MG Oral T ablet 06/14/2019 12:00:00 AM EST eCW1 ([facility])
--- OUTSIDE RECORDS SUMMARY | 2020-06-01 10:15 | CCD | Continuity of Care Document ---
Author Author Radha JETER MD Organization Unknown Address [address] [place] [id number] Phone [phone] Care Team Providers Care Counter [employer] Name Role Phone Otoniel Young MD [facility] [phone] Problems Active Problems Provider Date Essential hypertension Marcia Jeter MD Onset: 03/26/2012 Obesity Kathleen Zhou WHNP Onset: 11/03/2013 Urinary incontinence Kathleen Zhou WHNP Onset: 11/03/2013 Social History Type Date Description Comments Sex Unknown Tobacco Use Start: Unknown Never Smoked Cigarettes ETOH Use Non-smoker, Occasional Drinker, Non-drug User Tobacco Use Start: Unknown Patient has never smoked Smoking Status Reviewed: 04/30/19 Patient has never smoked Exercise Type/Frequency Exercises [...] Available Procedures Date Code Description Status 04/29/2017 [id number] Mammogram Completed Medical Devices Description No Information Available Encounters Description No Information Available Assessments Description No Information Available Plan of Treatment Future Appointment(s):* 06/12/2020 11:45 am - 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
[2020-06-01] MEDS ORDERED: VASOPRESSIN INJ 20 UNITS/ML VIAL As Ordered ONE (11:53)
[2020-06-01] MEDS ORDERED: MIDAZOLAM INJ 2MG/2ML VIAL (J2250 PER 1MG) As Ordered ONE (12:28)
[2020-06-01] MEDS ORDERED: METOCLOPRAMIDE INJ 10MG/2ML VIAL (J2765 PER 1) As Ordered ONE (12:37)
[2020-06-01] MEDS ORDERED: dexameTHASONE 4 MG/ML 1ML VIAL (J1100 PER 1MG) As Ordered ONE (12:37)
[2020-06-01] MEDS ORDERED: BUPIVACAINE HCL 0.5% 30 ML VIAL As Ordered ONE (12:50)
[2020-06-01] MEDS ORDERED: propofoL 200 MG/20 ML VIAL As Ordered ONE (13:00)
[2020-06-01 13:32] VITALS: BP 130/73
--- NOTE | 2020-06-01 14:04 | RO ---
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 POSTOPERATIVE DIAGNOSIS: Stress urinary incontinence with hypermobility of the urethra. PROCEDURE: Mini mid-urethral sling with Altis. SURGEON: Marcia Gann MD ANESTHESIA: MAC and local. ASSISTANTS: None. SPECIMENS: None. BRIEF DESCRIPTION OF PROCEDURE AND FINDINGS: Asia was brought to the operating room, where sufficient sedation was given and her bladder was emptied and then we injected both 0.5% Marcaine and some vasopressin diluted as typical for the hospital in the anterior vaginal wall in the typical location for the sling. Then, approximately 1.5 cm from the urethral meatus, working caudad to cephalad, we incised the anterior vaginal wall sufficiently to allow introduction of the Altis sling. We then dissected laterally for the tract for the mesh sling, and then I was able to palpate the course of that tract and confirm proper anatomy. We used a metal catheter in the bladder to both empty the bladder and to confirm that we were well away from the urethra. Then, we placed first the right side and then the left, leaving the sling somewhat laxed. We went ahead and scoped the patient. We confirmed the absence of injury to the bladder, normal ureters, etc. Then, we carefully tightened the mesh to be touching without tension and not distorting the tissues in any way, and then trimmed the end of the sling suture, and then closed the vaginal wound. The procedure was then ended. ESTIMATED BLOOD LOSS: About 5 mL. FLUID REPLACEMENT: Crystalloid. COMPLICATIONS: None. CONDITION AND DISPOSITION: Asia tolerated the procedure well and was recovering in the recovery room in good condition.
== END 2020-06-01 14:18 | disposition home or self-care (01) ==
LOC: M SDC 10:09
PROVIDERS: ATTEND Obstetrics & Gynecology
DX: N39.3 Stress incontinence (female) (male) (principal); N36.41 Hypermobility of urethra; E78.00 Pure hypercholesterolemia, unspecified; I10 Essential (primary) hypertension; M46.92 Unspecified inflammatory spondylopathy, cervical region; Z79.899 Other long term (current) drug therapy; Z87.442 Personal history of urinary calculi; Z88.0 Allergy status to penicillin; Z92.3 Personal history of irradiation
CPT/HCPCS: 57288; C1771; J1100; J1885; J2250; J2405; J2765; J3010

== ENCOUNTER → 2020-08-31 | Outpatient (CLI) | payer OTHER ==
[~2020-08-31] MED LIST changes: -KETOROLAC 60MG 2ML VIAL As Ordered ONE; -LIDOCAINE 1% MDV 20ML VIAL SQ PRN; -LIDOCAINE 2% 100MG/5ML SDV (FOR ANES.) As Ordered ONE; -LR 1,000 ML IV ONE; -MIDAZOLAM INJ 2MG/2ML VIAL (J2250 PER 1MG) As Ordered ONE; -ONDANSETRON 4MG/2ML VIAL As Ordered ONE; -fentaNYL 100 MCG/2 ML INJECTION (J3010) As Ordered ONE; -propofoL 200 MG/20 ML VIAL As Ordered ONE
--- NOTE | 2020-08-31 09:57 | REP ---
INDICATION: F/U LIVER HEMANGIOMA, LIVER CYST COMPARISON: 06/25/2018 TECHNIQUE: Real time pepe scale ultrasound examination using curved array transducer. FINDINGS: Liver is diffusely hyperechoic suggesting fatty infiltration. Small cysts identified on prior examination are not visualized on current exam. Hypodense lesion in the right lobe measuring 1.6 x 1.0 x 1.3 cm again noted and consistent with the previously diagnosed hemangioma. Pancreas is incompletely evaluated due to interposed bowel gas but visualized portions appear normal. The gallbladder is normal and without gallstones, wall thickening, or pericholecystic fluid. No biliary ductal dilatation is appreciated and the common bile duct measures 3.0 mm diameter. Right kidney is normal in reniform shape without hydronephrosis and measures 9.5 x 6.7 x 4.7 cm. No ascites in the visualized right upper quadrant. IMPRESSION: Stable hepatic hemangioma based on CT dated 07/07/2018 <Electronically signed by Alexander Urban > 08/31/20 [id number]
== END ==
LOC: M RAD 09:16
PROVIDERS: ATTEND Family Medicine
DX: K76.89 Other specified diseases of liver (principal); D18.03 Hemangioma of intra-abdominal structures

== ENCOUNTER → 2020-11-28 | Outpatient (REF) | payer OTHER ==
[2020-11-28 16:40] LABS: ALBUMIN 3.7 GM/DL (3.2-5.2); ALT/SGPT 44 U/L (12-78); BILIRUBIN,TOTAL 0.6 MG/DL (0.2-1.0); BLOOD UREA NITROGEN 13 MG/DL (7-18); CALCIUM LEVEL 8.6 MG/DL (8.5-10.1); CARBON DIOXIDE LEVEL 25 MEQ/L (21-32); CHLORIDE LEVEL 110 MEQ/L (98-107); CHOLESTEROL LEVEL 225 MG/DL (<200); CREATININE FOR GFR 0.77 MG/DL (0.55-1.30); GLOMERULAR FILTRATION RATE > 60.0 (>51); GLUCOSE, FASTING 86 MG/DL (70-100); HDL CHOLESTEROL 60 MG/DL (>40); LDL CHOLESTEROL 147 MG/DL (<100); NON-HDL-C 165 MG/DL; POTASSIUM SERUM 4.1 MEQ/L (3.5-5.1); SODIUM LEVEL 142 MEQ/L (136-145); TOTAL PROTEIN 6.4 GM/DL (6.4-8.2); TRIGLYCERIDES LEVEL 92 MG/DL (<150)
== END ==
LOC: M SFHCCLAY 09:33
PROVIDERS: ATTEND Family Medicine
DX: I10 Essential (primary) hypertension (principal); E78.2 Mixed hyperlipidemia

== ENCOUNTER → 2021-08-06 | Outpatient (REF) | payer OTHER ==
[2021-08-06 12:03] LABS: ALBUMIN 3.7 GM/DL (3.2-5.2); ALT/SGPT 38 U/L (12-78); BILIRUBIN,TOTAL 0.7 MG/DL (0.2-1.0); BLOOD UREA NITROGEN 13 MG/DL (7-18); CALCIUM LEVEL 8.9 MG/DL (8.5-10.1); CARBON DIOXIDE LEVEL 29 MEQ/L (21-32); CHLORIDE LEVEL 108 MEQ/L (98-107); CHOLESTEROL LEVEL 232 MG/DL (<200); CHOLESTEROL RISK RATIO 4.142 (<5); CREATININE FOR GFR 0.84 MG/DL (0.55-1.30); FREE T4 1.13 NG/DL (0.76-1.46); GLOMERULAR FILTRATION RATE > 60.0 (>51); GLUCOSE, FASTING 94 MG/DL (70-100); HDL CHOLESTEROL 56 MG/DL (>40); LDL CHOLESTEROL 152 MG/DL (<100); NON-HDL-C 176 MG/DL; POTASSIUM SERUM 3.9 MEQ/L (3.5-5.1); SODIUM LEVEL 142 MEQ/L (136-145); TOTAL PROTEIN 6.6 GM/DL (6.4-8.2); TRIGLYCERIDES LEVEL 121 MG/DL (<150)
== END ==
LOC: M SFHCCLAY 08:09
PROVIDERS: ATTEND Family Medicine
DX: E78.2 Mixed hyperlipidemia (principal); I10 Essential (primary) hypertension

== ENCOUNTER → 2021-08-15 | Outpatient (CLI) | payer OTHER | LOC: M CLY 10:52 | PROVIDERS: ATTEND Family Medicine | DX: R07.81 Pleurodynia (principal) ==

== ENCOUNTER → 2022-07-17 | Outpatient (REF) | payer OTHER | LOC: M PLALAB 17:13 | PROVIDERS: ATTEND Nurse Practitioner Family | DX: Z12.4 Encounter for screening for malignant neoplasm of cervix (principal) ==

== ENCOUNTER → 2022-08-12 | Outpatient (REF) | payer OTHER ==
[2022-08-12 11:27] LABS: ALBUMIN 3.6 G/DL (3.2-5.2); ALKALINE PHOSPHATASE 82 U/L (46-116); ALT/SGPT 21 U/L (7.0-40); AST/SGOT < 8 U/L (<34); BILIRUBIN,TOTAL 0.5 MG/DL (0.3-1.2); BLOOD UREA NITROGEN 16 MG/DL (9-23); CALCIUM LEVEL 8.8 MG/DL (8.5-10.1); CARBON DIOXIDE LEVEL 28 MMOL/L (20-31); CHLORIDE LEVEL 110 MMOL/L (98-107); CHOLESTEROL LEVEL 239 MG/DL (<200); CHOLESTEROL RISK RATIO 4.37 (<5); CREATININE FOR GFR 0.75 MG/DL (0.55-1.30); GLOMERULAR FILTRATION RATE > 60.0 (>51); GLUCOSE, FASTING 89 MG/DL (60-100); HDL CHOLESTEROL 54.6 MG/DL (>40); LDL CHOLESTEROL 156.2 MG/DL (<100); NON-HDL-C 184.4 MG/DL; POTASSIUM SERUM 3.8 MMOL/L (3.5-5.1); SODIUM LEVEL 141 MMOL/L (136-145); TOTAL PROTEIN 6.3 G/DL (5.7-8.2); TRIGLYCERIDES LEVEL 141 MG/DL (<150)
[2022-08-12 11:28] LABS: FREE T4 0.96 NG/DL (0.89-1.76); THYROID STIMULATING HORMONE 1.797 uIU/ML (0.55-4.78)
== END ==
LOC: M SFHCCLAY 08:30
PROVIDERS: ATTEND Family Medicine
DX: I10 Essential (primary) hypertension (principal); E78.2 Mixed hyperlipidemia

== ENCOUNTER → 2023-02-26 | Outpatient (REF) | payer OTHER ==
[~2023-02-26] MED LIST changes: -K-TA10TA2 PO; +POTA-165 PO
[2023-02-26 14:57] LABS: BLOOD UREA NITROGEN 15 MG/DL (9-23); CALCIUM LEVEL 9.9 MG/DL (8.5-10.1); CARBON DIOXIDE LEVEL 28 MMOL/L (20-31); CHLORIDE LEVEL 107 MMOL/L (98-107); CREATININE FOR GFR 0.77 MG/DL (0.55-1.30); GLOMERULAR FILTRATION RATE > 60.0 (>51); GLUCOSE, FASTING 91 MG/DL (60-100); POTASSIUM SERUM 4.2 MMOL/L (3.5-5.1); SODIUM LEVEL 143 MMOL/L (136-145)
== END ==
LOC: M LABWUC 12:24
PROVIDERS: ATTEND Family Medicine
DX: I10 Essential (primary) hypertension (principal)

== ENCOUNTER → 2024-02-11 | Outpatient (REF) | payer OTHER ==
[2024-02-11 12:05] LABS: ALBUMIN 3.6 G/DL (3.2-5.2); ALKALINE PHOSPHATASE 76 U/L (35-104); ALT/SGPT 29 U/L (7.0-40); AST/SGOT 19 U/L (<34); BILIRUBIN,TOTAL 0.7 MG/DL (0.3-1.2); BLOOD UREA NITROGEN 16 MG/DL (9-23); CALCIUM LEVEL 9.5 MG/DL (8.3-10.6); CARBON DIOXIDE LEVEL 28 MMOL/L (20-31); CHLORIDE LEVEL 109 MMOL/L (98-107); CHOLESTEROL LEVEL 255 MG/DL (<200); CHOLESTEROL RISK RATIO 4.45 (<5); CREATININE FOR GFR 0.79 MG/DL (0.55-1.30); GLOMERULAR FILTRATION RATE > 60.0 (>45); GLUCOSE, FASTING 90 MG/DL (74-106); HDL CHOLESTEROL 57.2 MG/DL (>40); LDL CHOLESTEROL 175.4 MG/DL (<100); NON-HDL-C 197.8 MG/DL; POTASSIUM SERUM 3.8 MMOL/L (3.5-5.1); SODIUM LEVEL 142 MMOL/L (136-145); TOTAL PROTEIN 6.5 G/DL (5.7-8.2); TRIGLYCERIDES LEVEL 112 MG/DL (<150)
[2024-02-11 12:08] LABS: FREE T4 1.09 NG/DL (0.89-1.76)
== END ==
LOC: M SFHCCLAY 08:51
PROVIDERS: ATTEND Family Medicine
DX: I10 Essential (primary) hypertension (principal); E78.2 Mixed hyperlipidemia

== ENCOUNTER → 2024-08-12 | Outpatient (REF) | payer OTHER ==
[2024-08-12 13:01] LABS: BILIRUBIN,TOTAL 0.7 MG/DL (0.3-1.2); CALCIUM LEVEL 9.1 MG/DL (8.3-10.6); CHOLESTEROL RISK RATIO 3.93 (<5); CREATININE FOR GFR 0.79 MG/DL (0.55-1.30); FREE T4 1.25 NG/DL (0.89-1.76); GLOMERULAR FILTRATION RATE 85.1 (>45); HDL CHOLESTEROL 65.3 MG/DL (>40); LDL CHOLESTEROL 171.3 MG/DL (<100); NON-HDL-C 191.7 MG/DL; POTASSIUM SERUM 3.5 MMOL/L (3.5-5.1); THYROID STIMULATING HORMONE 2.023 uIU/ML (0.55-4.78); TOTAL PROTEIN 6.9 G/DL (5.7-8.2)
== END ==
LOC: M SFHCCLAY 09:00
PROVIDERS: ATTEND Nurse Practitioner Family
DX: I10 Essential (primary) hypertension (principal); E78.2 Mixed hyperlipidemia

== ENCOUNTER → 2024-11-24 | Outpatient (REF) | payer OTHER ==
[~2024-11-24] MED LIST changes: +LOSA100T46 PO; +MULTTAB61 PO; +SEMA0.252; +TUMS500C PO
[2024-11-26 15:17] LABS: HPV APTIMA Not Detected (Not Detected)
== END ==
LOC: M SFHCCLAY 10:51
PROVIDERS: ATTEND Nurse Practitioner Family
DX: Z12.4 Encounter for screening for malignant neoplasm of cervix (principal)
CPT/HCPCS: 87624; G0123

== ENCOUNTER 2024-11-25 08:36 | Day surgery (SDC) | payer OTHER ==
[~2024-11-25] VITALS: Ht 160 cm; Wt 88.9 kg
[2024-11-25 10:18] VITALS: TEMP 97.3
[2024-11-25 10:33] VITALS: BP 121/68; O2SAT 96
== END 2024-11-25 10:55 | disposition home or self-care (01) ==
LOC: M OPP 08:36
PROVIDERS: ATTEND Surgery
DX: Z12.11 Encounter for screening for malignant neoplasm of colon (principal); D12.6 Benign neoplasm of colon, unspecified; K57.30 Diverticulosis of large intestine without perforation or abscess without bleeding; Z88.0 Allergy status to penicillin; Z79.85 Long-term (current) use of injectable non-insulin antidiabetic drugs; Z79.899 Other long term (current) drug therapy

== ENCOUNTER 2025-01-06 10:00 | Emergency (ER) | payer OTHER ==
[~2025-01-06] VITALS: Ht 160 cm; Wt 89.5 kg
[~2025-01-06 10:00] MED LIST changes: -SEMA0.252; +SEMA0.252 PO
[2025-01-06] MEDS: ACETAMINOPHEN 500 MG TAB PO ONE (11:27)
[2025-01-06 11:58] LABS: BASO # 0.1 10^3/uL (0.0-0.2); BASO % 1.0 % (0.0-1.0); EOS # 0.4 10^3/uL (0.0-0.5); EOS % 5.3 % (0.0-3.0); LYMPH # 1.3 10^3/uL (1.5-5.0); LYMPH % 18.5 % (24.0-44.0); MONO # 0.6 10^3/uL (0.0-0.8); MONO % 9.5 % (2.0-8.0); NEUTROPHILS # 4.4 10^3/uL (1.5-8.5); NEUTROPHILS % 65.3 % (36.0-66.0); PLATELET COUNT, AUTOMATED 280 10^3/uL (150-450)
[2025-01-06 11:59] LABS: APPEARANCE, URINE CLEAR (CLEAR); BACTERIA, URINE AUTO NEGATIVE (NEGATIVE); BILIRUBIN, URINE AUTO NEGATIVE (NEGATIVE); BLOOD, URINE BLOOD NEGATIVE (NEGATIVE); GLUCOSE, URINE (UA) AUTO NEGATIVE (NEGATIVE); KETONE, URINE AUTO NEGATIVE (NEGATIVE); LEUKOCYTE ESTERASE, URINE AUTO 2+ (NEGATIVE); MUCUS, URINE SMALL (NEGATIVE); NITRITE, URINE AUTO NEGATIVE (NEGATIVE); PROTEIN, URINE AUTO NEGATIVE (NEGATIVE); RBC, URINE AUTO 3 /HPF (0-3); SPECIFIC GRAVITY URINE AUTO 1.008 (1.002-1.035); SQUAMOUS EPITHELIAL CELL UR AU 2 /HPF (0-6); UROBILINOGEN, URINE AUTO 0.2 mg/dL (0.0-2.0); WBC, URINE AUTO 5 /HPF (0-3)
[2025-01-06 12:04] LABS: ERYTHROCYTE SEDIMENTATION RATE 34 mm/hr (0-30)
[2025-01-06 12:12] LABS: INR 0.93
[2025-01-06 12:22] LABS: C REACTIVE PROTEIN QUANTITATIV 1.79 MG/DL (<1.0)
[2025-01-06 12:23] LABS: ALT/SGPT 33.0 U/L (7.0-40); AST/SGOT 22.0 U/L (<34); CALCIUM LEVEL 9.3 MG/DL (8.3-10.6); CARBON DIOXIDE LEVEL 28.0 MMOL/L (20-31); CHLORIDE LEVEL 104.0 MMOL/L (98-107); CREATININE FOR GFR 0.82 MG/DL (0.55-1.30); GLOMERULAR FILTRATION RATE 81.3 (>45); POTASSIUM SERUM 3.3 MMOL/L (3.5-5.1); SODIUM LEVEL 141.0 MMOL/L (136-145)
[2025-01-06] MEDS ORDERED: HOME MED LIST COMPLETE! XX SCH (12:25)
[2025-01-06] MEDS ORDERED: SULF1TAB23 PO (15:43)
[2025-01-06] MEDS: KETOROLAC 30 MG/ML 1 ML VIAL IV ONE (15:45)
[2025-01-06] MEDS: POTASSIUM CHLORIDE 10MEQ SR TABLET PO ONE (15:45)
[2025-01-06] MEDS: CEFTAROLINE FOSAMIL 600 MG in DEXTROSE 5% (D5W) ADV/MINI-BAG 50 ML IV ONE (15:46)
[2025-01-06 16:30] VITALS: BP 133/79; O2SAT 97
[2025-01-06 16:46] VITALS: TEMP 98
== END 2025-01-06 17:05 | disposition home or self-care (01) ==
LOC: M ED 10:00
DX: L03.113 Cellulitis of right upper limb (principal); I10 Essential (primary) hypertension; Z88.0 Allergy status to penicillin; Z79.4 Long term (current) use of insulin; Z79.899 Other long term (current) drug therapy; Z79.810 Long term (current) use of selective estrogen receptor modulators (SERMs)
CPT/HCPCS: 71045; 73200; 80047; 80048; 80076; 81001; 83605; 84145; 84550; 85025; 85610; 85652; 85730; 86140; 87040; 87088; 87186; 93005; 93041; 93971; 94760; 96365; 96375; 99285; J0712; J1885

== ENCOUNTER 2025-01-15 09:44 | Emergency (ER) | payer OTHER ==
[~2025-01-15] VITALS: Ht 160 cm; Wt 88.1 kg
[~2025-01-15 09:44] MED LIST changes: +SULF1TAB23 PO
[2025-01-15 09:55] VITALS: BP 113/74; TEMP 97.6; O2SAT 97
[2025-01-15 13:19] LABS: BASO # 0.0 10^3/uL (0.0-0.2); BASO % 0.4 % (0.0-1.0); EOS # 0.7 10^3/uL (0.0-0.5); EOS % 15.0 % (0.0-3.0); LYMPH # 1.2 10^3/uL (1.5-5.0); LYMPH % 26.6 % (24.0-44.0); MONO # 0.4 10^3/uL (0.0-0.8); MONO % 9.4 % (2.0-8.0); NEUTROPHILS # 2.2 10^3/uL (1.5-8.5); NEUTROPHILS % 48.2 % (36.0-66.0); PLATELET COUNT, AUTOMATED 284 10^3/uL (150-450)
[2025-01-15] MEDS ORDERED: PRED20TA PO (13:43)
== END 2025-01-15 13:50 | disposition home or self-care (01) ==
LOC: M ED 09:44
DX: R21 Rash and other nonspecific skin eruption (principal); T37.0X5A Adverse effect of sulfonamides, initial encounter; Z88.0 Allergy status to penicillin; Z88.2 Allergy status to sulfonamides; Z79.4 Long term (current) use of insulin; Z79.52 Long term (current) use of systemic steroids; Z79.899 Other long term (current) drug therapy

== ENCOUNTER → 2025-02-24 | Outpatient (REF) | payer OTHER ==
[~2025-02-24] MED LIST changes: +PRED20TA PO
[2025-02-24 13:43] LABS: ALT/SGPT 32.0 U/L (7.0-40); AST/SGOT 24.0 U/L (<34); CALCIUM LEVEL 9.3 MG/DL (8.3-10.6); CARBON DIOXIDE LEVEL 27.0 MMOL/L (20-31); CHLORIDE LEVEL 103.0 MMOL/L (98-107); CHOLESTEROL LEVEL 243.0 MG/DL (<200); CHOLESTEROL RISK RATIO 4.02 (<5); CREATININE FOR GFR 0.98 MG/DL (0.55-1.30); FREE T4 1.35 NG/DL (0.89-1.76); GLOMERULAR FILTRATION RATE 65.7 (>45); LDL CHOLESTEROL 157.2 MG/DL (<100); NON-HDL-C 182.6 MG/DL; POTASSIUM SERUM 3.6 MMOL/L (3.5-5.1); SODIUM LEVEL 140.0 MMOL/L (136-145); TRIGLYCERIDES LEVEL 127.0 MG/DL (<150)
[2025-02-24 13:50] LABS: ESTIMATED AVERAGE GLUCOSE 103.0 MG/DL (60-110)
== END ==
LOC: M SFHCCLAY 09:21
PROVIDERS: ATTEND Nurse Practitioner Family
DX: I10 Essential (primary) hypertension (principal); E78.2 Mixed hyperlipidemia; G25.0 Essential tremor; Z85.3 Personal history of malignant neoplasm of breast